=== PATIENT | female | born 1950 | race Caucasian/White ===

== ENCOUNTER 2017-03-10 12:17 | Emergency (ER) | payer MEDICARE ==
[2017-03-10] MEDS ORDERED: HYDROcodone/Acetaminophen 10/325 mg Tablet ONE (13:47)
== END 2017-03-10 13:54 | disposition home or self-care (01) ==
LOC: ERS 12:17
DX: K40.90 Unilateral inguinal hernia, without obstruction or gangrene, not specified as recurrent (principal); E78.5 Hyperlipidemia, unspecified; J44.9 Chronic obstructive pulmonary disease, unspecified; Z87.891 Personal history of nicotine dependence; Z79.82 Long term (current) use of aspirin; Z79.899 Other long term (current) drug therapy
CPT/HCPCS: 99284

== ENCOUNTER 2017-03-11 11:29 | Outpatient (CLI) | payer MEDICARE ==
--- NOTE | 2017-03-11 14:25 | EKG ---
Test Reason : Blood Pressure : / mmHG Vent. Rate : 060 BPM Atrial Rate : 060 BPM P-R Int : 164 ms QRS Dur : 078 ms QT Int : 406 ms P-R-T Axes : 083 078 081 degrees QTc Int : 406 ms Normal sinus rhythm Septal infarct , age undetermined Abnormal ECG No previous ECGs available Confirmed by DR. Maria E JACOBS ([id number]) on 03/11/2017 2:25:14 PM Referred By: MICKEY Confirmed By:DR. Maria E JACOBS
== END 2017-03-11 11:30 | disposition home or self-care (01) ==
LOC: LABBT 11:29
PROVIDERS: ATTEND Specialist
DX: Z01.818 Encounter for other preprocedural examination (principal); K40.90 Unilateral inguinal hernia, without obstruction or gangrene, not specified as recurrent
CPT/HCPCS: 93005; 93010

== ENCOUNTER 2017-03-19 06:00 | Day surgery (SDC) | payer MEDICARE ==
[2017-03-11 12:12] VITALS: BMI 17.4
--- NOTE | 2017-03-11 22:25 | HP ---
HISTORY OF PRESENT ILLNESS: Iqra West is a 67-year-old female with right inguinal hernia, she has COPD. She had colonoscopy on 06/01/2016 in [place], had problems, post-procedure requiring ER vi sit. Postoperatively, they presented to [facility] had laboratories. She had a CAT scan de monstrating right inguinal hernia, they were able to reduce the hernia. LABORATORY DATA: Laboratories on 03/10/2017, unremarkable. Plan is right inguinal hernia repair wit h as an outpatient. ALLERGIES: None. TOBACCO: None, since 2012 abuse prior to that. ALCOHOL: None. MEDICATIONS: Colace, Dawson 5/325, aspirin 81 mg a day, tramadol 50 mg a day, metoprolol 25 mg extend ed release every day, topiramate 50 mg every day, rizatriptan benzoate 10 mg a day, atorvastatin 10 m g a day, inhalers for COPD. PAST MEDICAL HISTORY: COPD. PAST SURGICAL HISTORY: In 2009 cervical spine surgery, 2 C-sections, subxiphoid surgery for hernia s he describes. REVIEW OF SYSTEMS: Ten point noncontributory. 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 She has severe arteriosclerosis ao rtic. PHYSICAL EXAMINATION: VITAL SIGNS: 92.8, 5'1", 17 BMI, 103/41, 66, 97.7 degrees. HEAD, EARS, EYES, NOSE AND THROAT: Unremarkable. LUNGS: Clear to auscultation. CARDIAC: Regular rate and rhythm without murmur or gallop. ABDOMEN: Soft, nontender. EXTREMITIES: Unremarkable. PULMONARY: No wheezing. The patient's left groin without hernia, on standing she has a right inguin al hernia that is reducible. ASSESSMENT AND PLAN: Right inguinal hernia. We will plan mesh repair. She understands the risks of infection, bleeding, reoperation, recurrence, and consents.
[2017-03-19] MEDS ORDERED: CEFAZOLIN/Water 2 GM/20 ML SYRINGE ONE (06:06)
[2017-03-19] MEDS ORDERED: Ketorolac Tromethamine 30 MG/ML VIAL ONE (06:07)
[2017-03-19] MEDS ORDERED: Lidocaine 2% PF 5 ML VIAL ONE (06:36)
[2017-03-19] MEDS ORDERED: Bupivacaine/Epinephrine 0.25% 30 ML VIAL ONE (06:36)
[2017-03-19] MEDS ORDERED: PROPOFOL 200 MG/20 ML VIAL ONE (06:55)
[2017-03-19] MEDS ORDERED: Ondansetron HCl/PF 4 MG/2 ML Vial ONE (06:55)
[2017-03-19] MEDS ORDERED: Dexamethasone 20 MG/5 ML VIAL ONE (06:55)
[2017-03-19] MEDS ORDERED: diphenhydrAMINE 50 MG/ML VIAL ONE (06:55)
[2017-03-19] MEDS ORDERED: Lidocaine 1% PF 5 ML VIAL ONE (06:55)
[2017-03-19] MEDS ORDERED: Fentanyl 100 MCG/2 ML VIAL ONE ×2 (06:59→09:31)
--- NOTE | 2017-03-19 09:36 | OP ---
PREOPERATIVE DIAGNOSIS: Right inguinal hernia. POSTOPERATIVE DIAGNOSIS: Right inguinal hernia. PROCEDURE: PHS mesh repair, right inguinal hernia. SURGEON: Dr. Edwin Perez. ANESTHESIA: General. Local 0.25% Marcaine with epinephrine, 30 mL, mixed with 2% Xylocaine, 10 mL t otal volume used. PROCEDURE IN DETAIL: The patient taken to the operating room where under general anesthesia, right g roin, abdomen, upper thigh prepared with ChloraPrep, draped in routine fashion. Ioban was used. Loc al anesthetic infiltrated into skin and subcutaneous tissue about the operative site. Transverse ski n incision was made in the right groin and carried down through the skin and subcutaneous tissue and the hernia mass dissected free, it was appreciated to be an indirect hernia protruding through the ex ternal ring. The external oblique, incising it in the direction of its fibers, opening the inguinal canal and the hernia sac dissected free from surrounding tissues. Hemostasis gained with cautery. H ernia sac opened under direct visualization, high ligation of hernia sac performed with a pursestring suture of 0 Nurolon to end of stump of the hernia sac, underlay portion of the PHS mesh secured with 0 Nurolon suture and mesh trimmed to a smaller size due to the patient's small stature both underlay and overlay portion. The underlay portion placed in the preperitoneal space, onlay portion placed s uperiorly in the inguinal canal and mesh secured with Mariano's ligament with 2 interrupted sutures of 0 Nurolon and Poupart's ligament with 2 sutures of 0 Nurolon. External oblique closed with continuo us suture of 3-0 Monocryl, Camper's fascia with continuous suture of 3-0 Monocryl, skin with continuo us subcuticular suture of 4-0 Monocryl and local anesthetic infiltrated in the space of the inguinal canal and space above and below Camper's fascia infiltrated in skin and subcutaneous tissue and [place] roth applied. Patient tolerated the procedure well.
== END 2017-03-19 11:07 | disposition home or self-care (01) ==
LOC: SDC 06:00
PROVIDERS: ATTEND Specialist
PROC: 0YU50JZ Supplement Right Inguinal Region with Synthetic Substitute, Open Approach (ICD-10-PCS; principal; 2017-03-19)
DX: K40.90 Unilateral inguinal hernia, without obstruction or gangrene, not specified as recurrent (principal); J44.9 Chronic obstructive pulmonary disease, unspecified; Z79.899 Other long term (current) drug therapy; Z98.890 Other specified postprocedural states; Z98.1 Arthrodesis status
CPT/HCPCS: 49505; C1781; J0131; J1100; J1200; J1885; J2001; J2405; J2704; J3010

== ENCOUNTER 2018-01-10 07:29 | Outpatient (CLI) | payer MEDICARE ==
--- NOTE | 2018-01-10 10:32 | MRI ---
RIGHT SHOULDER MRI WITHOUT IV CONTRAST: Date: 01/10/18 HISTORY: 67-year-old female with history of right rotator cuff strain. Patient was medicated, but still demonstrated severe motion artifact. FINDINGS: Severe motion artifact markedly reduces the sensitivity of this study. There are some AC joint arthro sis changes with minimal T2 hyperintensity in the adjacent clavicle and acromion. There does appear t o be some minimal fluid and reaction within the subacromial/subdeltoid bursa. I cannot demonstrate a complete retracted rotator cuff tear, although certain partial thickness tears could very well be pre sent and just obscured by the extensive motion artifact. Subscapularis tendon and biceps tendon are v lis poorly identified, but there does not appear to be a complete full thickness retracted tear. Labr um is inadequately evaluated. No acute osteochondral defect or significant abnormal marrow signal of the glenoid or humerus. Rotator cuff muscles appear to be within normal limits of signal and volume. IMPRESSION: Very severe motion artifact results in a very suboptimal examination. No overt complete retracted rot ator cuff tear. AC joint arthrosis. POS: LINDSEY
== END 2018-01-10 07:30 | disposition home or self-care (01) ==
LOC: BICMRI 07:29
PROVIDERS: ATTEND Anesthesiology Pain Medicine
DX: S43.429A Sprain of unspecified rotator cuff capsule, initial encounter (principal); M19.011 Primary osteoarthritis, right shoulder

== ENCOUNTER 2018-02-17 09:33 | Outpatient (CLI) | payer MEDICARE ==
--- NOTE | 2018-02-17 11:37 | RAD ---
RIGHT SHOULDER THREE VIEW: Indication: Chronic pain. FINDINGS: There is moderate osteoarthritis of the right AC joint. There is no fracture or dislocation. Partiall y imaged hardware is seen at the cervical spine. IMPRESSION: Osteoarthritis of the right shoulder. There is no acute fracture. POS: C
--- NOTE | 2018-02-17 14:15 | CT ---
CT ARTHROGRAM RIGHT SHOULDER: DATE: 02/17/2018. PROVIDED CLINICAL HISTORY: Right shoulder pain. FINDINGS: Comparison is made with the MRI examination performed 01/10/2018. There is no evidence for contrast containing fluid beyond the confines of the glenohumeral joint to s uggest a full-thickness rotator cuff tear. There is no evidence for undersurface irregularity of the visualized components of the rotator cuff to suggest partial-thickness undersurface tear. Rotator c uff muscular volume appears preserved. There is acromioclavicular joint osteoarthrosis which produce s mass effect upon the subjacent supraspinatus. The glenoid labrum and glenohumeral articular cartil age appear normal by CT. No fracture or other acute osseous abnormality is evident. The glenohumera l relationship appears normal. The long head biceps tendon appears intact and is normally located. There are emphysematous changes seen involving the partially visualized right lung. No evidence for axillary adenopathy. Vascular calcifications are seen. Partially visualized cervical spinal hardwar e. IMPRESSION: No evidence for rotator cuff tear. POS: OFF
== END 2018-02-17 09:34 | disposition home or self-care (01) ==
LOC: RAD 09:33
PROVIDERS: ATTEND Orthopaedic Surgery
DX: M25.511 Pain in right shoulder (principal); G89.29 Other chronic pain; M19.011 Primary osteoarthritis, right shoulder
CPT/HCPCS: 23350

== ENCOUNTER 2020-03-18 08:44 | Outpatient (CLI) | payer MEDICARE ==
--- NOTE | 2020-03-18 11:51 | RAD ---
TWO VIEW CHEST: INDICATION: Dyspnea. COMPARISON: 01/11/2020 and 08/09/2019. FINDINGS: No evidence of infiltrate or vascular congestion. Stranding and chronic parenchymal changes appear s table. Nodular density in the left upper lung is stable. Heart and mediastinum unremarkable. IMPRESSION: No acute process. POS: AGW
== END 2020-03-18 08:45 | disposition home or self-care (01) ==
LOC: BICRAD 08:44
PROVIDERS: ATTEND Internal Medicine Critical Care Medicine
DX: R06.00 Dyspnea, unspecified (principal)
CPT/HCPCS: 71046

== ENCOUNTER 2020-03-25 00:10 | Inpatient (IN) | payer MEDICARE, SELFPAY ==
[2020-03-25] MEDS ORDERED: Acetaminophen 325 MG TAB PO PRN (00:45)
[2020-03-25 00:58] VITALS: BMI 18.8
[2020-03-25] MEDS ORDERED: Albuterol 200 PUFF (6.7GM INHALER) INH PRN (01:09)
[2020-03-25] MEDS ORDERED: Guaifenesin DM 100-10/5 ML UDCUP PO PRN (02:03)
[2020-03-25] MEDS ORDERED: Non-Formulary Item 1 EACH (Albuterol Sulfate [Proair Hfa] 8.5 GM Hfa.Aer.Ad) INH PRN (02:09)
--- NOTE | 2020-03-25 02:12 | PDOC.HHP ---
Hospitalist HPI - History of Present Illness Shortness of breath and fever History of Present Illness: 70-year-old woman with a history of COPD, chronic respiratory failure on 2 L of oxygen by nasal cannula was transferred from [facility] to be directly admitted because patient tested positive for Covid 19 and she is considered a high risk patient. She presented to the [place] ER due to increased shortness of breath and fever. She reports intermittent nonproductive cough, no chest pain. Chest x-ray done in the ER shows no acute infiltrate. No leukocytosis. UA is negative. Patient was saturating well on her baseline 2 L of oxygen by nasal cannula with good oxygen saturation. She was sleeping comfortably when I saw her on the medical floor. Hospitalist ROS - Review of Systems Other: Except as documented, all other systems reviewed and negative. Hospitalist History - Past Medical History Pulmonary: reports: COPD - Past Surgical History Other Surgical History: Cervical spine surgery section - Family History Family History: reports: cardiac disorder (Father) - Social History Smoking Status: Former smoker Alcohol: reports: None Drugs: reports: none - Exam General Appearance: NAD, awake alert Eye: PERRL, anicteric sclera ENT: normocephalic atraumatic, moist mucosa Neck: supple, no JVD Heart: RRR, normal peripheral pulses Respiratory: CTAB, no wheezes, no rales Gastrointestinal: soft, non-tender, non-distended Extremities: no cyanosis, no edema Skin: normal turgor, no rashes Neurological: cranial nerve grossly intact, no focal deficits Musculoskeletal: normal tone, normal strength Psychiatric: normal affect, normal behavior, A&O x 3 Hospitalist Results - Labs Lab results: Labs done at [facility] reviewed. UA is negative for UTI. WBC:10 HB 12.5 Cr:0.85 - Radiology Interpretation Chest x-ray Status: report reviewed by me (No acute intrathoracic disease.) Hospitalist H&P A/P - Problem (1) COPD (chronic obstructive pulmonary disease) Status: Acute (2) COVID-19 virus infection Code(s): U07.1 - COVID-19 Status: Acute (3) Chronic respiratory failure with hypoxia Code(s): J96.11 - CHRONIC RESPIRATORY FAILURE WITH HYPOXIA Status: Acute - Plan Plan: Place under observation. Start oral prednisone Continue home inhalers. Titrate oxygen No indication for antibiotics at this time. Vitamins and zinc supplementation
[2020-03-25 06:51] LABS: #Lymphocytes 1.4 thou/uL (1.20-3.40); #Monocytes 0.9 thou/uL (0.11-0.59); #Neutrophils 4.3 thou/uL (1.40-6.50); %Basophils 0.4 % (0.0-1.0); %Eosinophils 0.5 % (0.0-10.0); %Lymphocytes 20.8 % (21.0-51.0); %Monocytes 13.1 % (0.0-10.0); %Neutrophils 65.1 % (42.0-75.0); Hemoglobin 11.2 g/dL (12.0-16.0); Mean Corpuscular HGB CONC 31.4 g/dL (32.0-36.0); Mean Corpuscular Hemoglobin 30.9 pg (27.0-31.0); Mean Corpuscular Volume 98.2 fL (78.0-98.0); Platelet Count 187 thou/uL (130-400); RBC Distribution Width 12.4 % (11.5-14.5); Red Blood Cell (RBC) Count 3.62 mill/uL (4.20-5.40); White Blood Cell (WBC) Count 6.6 thou/uL (4.8-10.8)
[2020-03-25 07:11] LABS: Anion Gap 14 mmol/L (10-20); BUN (Urea Nitrogen) 14 mg/dL (9.8-20.1); Calc. Creatinine Clearance 55 mL/min (70-130); Calcium 8.1 mg/dL (7.8-10.44); Carbon Dioxide 26 mmol/L (23-31); Chloride 103 mmol/L (98-107); Glucose 74 mg/dL (80-115); Potassium 3.4 mmol/L (3.5-5.1); Sodium 140 mmol/L (136-145)
[2020-03-25] MEDS ORDERED: predniSONE 20 MG TAB PO SCH (08:00)
[2020-03-25] MEDS: Ascorbic Acid 500 mg Chewable Tablet PO SCH ×2 (08:02→20:25)
[2020-03-25] MEDS: Cholecalciferol 1,000 UNITS (25 MCG) TAB PO SCH (08:02)
[2020-03-25] MEDS: Zinc Sulfate 220 MG CAP PO SCH (08:03)
[2020-03-25] MEDS: Albuterol 200 PUFF (6.7GM INHALER) INH SCH ×3 (08:04→20:27)
[2020-03-25] MEDS ORDERED: Enoxaparin Sodium 40 MG/0.4 ML SYRINGE SC SCH (09:00)
[2020-03-25] MEDS ORDERED: Non-Formulary Item 1 EACH (Umeclidinium Brm/Vilanterol Tr [Anoro Ellipta] 62.5 MCG/25 MCG INH SCH (09:00)
[2020-03-25] MEDS: HYDROcodone/Acetaminophen 5/325 mg Tablet PO PRN ×2 (12:23→20:26)
[2020-03-25] MEDS ORDERED: Potassium Chloride 20 MEQ TAB PO SCH (13:15)
--- NOTE | 2020-03-25 15:35 | CON ---
DATE OF CONSULTATION: 03/25/2020 TIME SPENT: 45 minutes of time; of that time, greater than 50% spent with the patient and/or the patient's unit in the hospital. REASON FOR CONSULTATION: COVID-19 pneumonia and COPD exacerbation. HISTORY OF PRESENT ILLNESS: Ms. West is a 70-year-old female who was followed in the office by Dr. Herrera for her COPD. She was last seen about 1 week ago. She presents with a 1-day history of fever, shortness of breath, and a cough. She was diagnosed with COVID and was sent over here because of medical comorbidities. She has developed elevation of her baseline atrial fibrillation heart rate today and is about to be transferred over to the telemetry unit. PAST MEDICAL HISTORY: COPD. PAST SURGICAL HISTORY: 1. C-spine surgery. 2. . FAMILY MEDICAL HISTORY: Remarkable for heart disease. SOCIAL HISTORY: Quit smoking 10 years ago. Does not consume alcohol. Does not use illicit drugs. ALLERGIES: NONE. MEDICATIONS: Prior to admission: 1. Tramadol. 2. Anoro Ellipta. 3. Topiramate. 4. Albuterol. 5. Maxalt. 6. Metoprolol. 7. [place]. 8. Docusate. 9. Atorvastatin. 10. Aspirin. 11. Albuterol. Current inpatient medications: Reviewed. See chart. Of note, she has been put on prednisone. REVIEW OF SYSTEMS: Twelve-point review of systems is otherwise negative. PHYSICAL EXAMINATION: VITAL SIGNS: Temperature 98.3 and this was 99.1, pulse 130, respirations 26, O2 saturation 100%, and blood pressure 109/65. GENERAL: She is a thin, white female who is awake and alert, in no apparent distress. HEENT: Unremarkable. NECK: No adenopathy or JVD. LUNGS: Few inspiratory crackles bilaterally. CARDIAC: S1 and S2. Tachycardic. Irregularly irregular. ABDOMEN: Soft and nontender. EXTREMITIES: No clubbing, cyanosis, or edema. NEUROLOGIC: Grossly intact. LABORATORY DATA: White blood cell count 6.6, hematocrit 35.6, and platelet count 187. Sodium 140, potassium 3.4, chloride 103, CO2 of 26, BUN 14, creatinine 0.6, and glucose 74. COVID test from 03/24/2020 was positive. Chest x-ray shows hyperinflation without evidence of mass, effusion, or infiltrate. ASSESSMENT: COVID-19 infection and the patient is high risk for decompensation from underlying chronic obstructive pulmonary disease. PLAN: Would change to dexamethasone. We will go ahead and give her remdesivir and convalescent plasma since she is very early on. Agree with move to telemetry since her AFib seems to be uncontrolled. Job ID: [id number]
--- NOTE | 2020-03-25 16:12 | PDOC.EVN ---
Event Note - Event Note Event Note: Patient noted to have heart rate into the 110s-150s. Symptoms otherwise unchanged from admit and sating well on her home 2L NC. EKG down showing afib with RVR. Giving diltiazem and increase Lovenox to BID at full dose (only 40 for her given weight). I spoke with Dr. Escudero and she will consult. Will also consult Dr. 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
[2020-03-25] MEDS ORDERED: Diltiazem 125 MG in Sodium Chloride 0.9% 100 ML IVPB SCH (16:15)
[2020-03-25 17:33] LABS: ALT (SGPT) 31 U/L (8-55); AST (SGOT) 42 U/L (5-34); Albumin 3.5 g/dL (3.4-4.8); Alkaline Phosphatase 44 U/L (40-110); Bilirubin, Direct 0.1 mg/dL (0.1-0.3); Bilirubin, Total 0.2 mg/dL (0.2-1.2); Protein, Total 6.2 g/dL (6.0-8.3)
[2020-03-25] MEDS ORDERED: Digoxin 0.5 MG/2 ML AMP SLOW IVP SCH (19:15)
--- NOTE | 2020-03-25 19:38 | CON ---
DATE OF CONSULTATION: 03/25/2020 INDICATION FOR CONSULTATION: A 70-year-old female with a history of COPD, chronic respiratory failure, and COVID who has episodes of intermittent atrial fibrillation, who was converted to atrial fibrillation with rapid ventricular response. We were asked to see her due to the atrial fibrillation. HISTORY OF PRESENT ILLNESS: This is a very unfortunate 70-year-old female who smoked heavily in the past, has a history of COPD and chronic respiratory failure. She is on oxygen, I believe, 05/10. She presented to the [facility] room after increasing shortness of breath and fevers. She was found to have COVID and was transferred here for further evaluation and treatment due to her high risk of decompensating. She normally is seen, I believe, by Dr. Herrera for her pulmonary problems. 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 She did tell me that when she was admitted to the hospital, this is the 3rd or 4th episode where she is admitted to the hospital with increasing shortness of breath or dyspnea and has developed atrial fibrillation. At this time, she was started on IV diltiazem and at times has converted back to sinus rhythm, but then again back to atrial fibrillation. PAST MEDICAL HISTORY: Significant mainly for her COPD, a , and some back surgery, I believe, she has had some C-spine surgery. She has also had hernia repairs. FAMILY HISTORY: Positive for some cardiac problems with her father. SOCIAL HISTORY: No history of alcohol or illicit drug use. She smoked in the past and have not smoked for several years now. REVIEW OF SYSTEMS: A 12-point review of systems was unremarkable except as noted in the history of present illness with increasing shortness of breath and dyspnea. ALLERGIES: NONE. MEDICATIONS: Home medicines included 1. Aspirin. 2. Tramadol. 3. Metoprolol/HCTZ 25/12.5 once a day. 4. Topiramate 100 mg q.p.m. 5. Maxalt 10 mg a day. 6. Lipitor 10 mg a day. 7. She is on inhalers for her COPD. PHYSICAL EXAMINATION: GENERAL: Reveals a thin female who is in no acute distress. She did have some coughing to the examination. VITAL SIGNS: Blood pressure is 116/63, heart rate is anywhere between 90s to 130s. Temperature is 98.3, earlier was 99.1, respiratory rate was 22. HEENT: Shows the head to be normocephalic and atraumatic. NECK: Carotid pulses are present. I did not hear any significant bruits. CHEST: Has decreased breath sounds throughout but no significant rales or rhonchi. CARDIOVASCULAR: Reveals a tachycardia with an irregularly irregular rhythm. I do not hear any gross murmurs, heaves, thrills or bruits. ABDOMEN: Soft and nontender. Positive bowel sounds are present. EXTREMITIES: Show no clubbing, cyanosis, or edema. Pedal pulses are present, somewhat decreased on the right, but certainly normal on the left. SKIN: Warm and dry. NEUROLOGIC: There were no gross focal motor deficits. PSYCHOSOCIAL: She appears to be within normal limits. No significant acute findings were noted. LABORATORY DATA: WBC of 6.6, hemoglobin 11.2, platelet count 187,000. Sodium was 140 with a potassium of 3.4, BUN was 14 with a creatinine of 0.06, a bicarb of 26. Blood sugar was 74. Her AST was 42. She is COVID positive. Chest x-ray showed no acute problems. EKG shows atrial fibrillation with rapid ventricular response and at other time shows a sinus tachycardia. At the time, she is in sinus tachycardia. This was approximately 1634 hours in the afternoon and there were no significant ST-segment changes during that time when she was in sinus rhythm. She then converted back to atrial fibrillation at 1741 hours. She has been placed on IV diltiazem. IMPRESSION: 1. Atrial fibrillation with rapid ventricular response. She has been placed on IV diltiazem. I would continue this medication. Can also add digoxin for rate control. This appears to be provoked by her COPD and probably even with the COVID. I would continue to follow her. If we can maintain her with IV diltiazem, this may be the best way to go. She is not a very good candidate to increase the beta-blockers with her COPD. We could certainly try Multaq if necessary to control her atrial fibrillation. She did tell me also that she has undergone a cardiac catheterization in the past and did not have any evidence of coronary artery disease, but does have some problems with some type of narrowing in the aorta, uncertain as to what that is. She could have some aortic stenosis, but now she has normal pulses in the lower extremities. I would not think this is a very significant. 2. Chronic obstructive pulmonary disease. She has been followed by Dr. Herrera in the past and most likely he will continue her care. 3. COVID. I believe she has already been seen by Dr. Jordan who has ordered some treatment for her at this time. At this time, I will continue to follow her. We agree with the present medication, but will order digoxin in order to maintain the heart rate under better control. 4. Some history of dyslipidemia. We will continue her atorvastatin. I believe this is one of her medicines prior to being admitted. Job ID: [id number]
[2020-03-25] MEDS: Atorvastatin Calcium 10 MG TAB PO SCH (20:26)
[2020-03-25] MEDS: Enoxaparin Sodium 40 MG/0.4 ML SYRINGE SC SCH (20:26)
[2020-03-25] MEDS ORDERED: TOPIRAMATE 50 MG PO SCH (21:00)
[2020-03-25] MEDS ORDERED: Nitroglycerin 0.4 MG TAB (25 Tab Bottle) ONE (21:04)
[2020-03-25] MEDS: Ibuprofen 200 MG TAB PO PRN (21:20)
[2020-03-25] MEDS: Nitroglycerin 0.4 MG TAB (25 Tab Bottle) SL PRN ×2 (21:20→21:30)
[2020-03-25 22:04] LABS: CKMB 2.3 ng/mL (0-6.6)
[2020-03-26] MEDS: Digoxin 0.5 MG/2 ML AMP SLOW IVP SCH ×2 (01:45→07:32)
[2020-03-26 01:51] LABS: CKMB 1.9 ng/mL (0-6.6)
[2020-03-26] MEDS: Albuterol 200 PUFF (6.7GM INHALER) INH SCH ×4 (02:15→20:48)
[2020-03-26 05:11] LABS: Troponin I 0.159 ng/mL (< 0.028)
--- NOTE | 2020-03-26 07:12 | PDOC.HOSPP ---
- Subjective Encounter Date: 03/26/20 Encounter Time: 10:00 Subjective: Patient reports mild improvement in SOB, but started wheezing when ambulated to the bathroom just now. Waiting for inhaler to be sent up from the pharmacy. - Objective Vital Signs & Weight: Vital Signs (12 hours) Temp Pulse Pulse Resp BP BP Pulse Ox 03/26/20 04:00 98.5 F 92 16 104/51 L 96 03/26/20 01:45 111 H 03/26/20 01:15 98.3 F 82 18 101/57 L 03/25/20 23:38 98.1 F 86 18 99/53 L 03/25/20 23:23 98.1 F 94 18 99/54 L 03/25/20 21:20 100.5 F H 03/25/20 20:25 111 H 03/25/20 20:00 100 03/25/20 19:20 100.5 F H 111 H 16 119/58 L 90 L Weight Admit Weight 96 lb 9.6 oz Weight 96 lb 9.6 oz I&O: 03/25/20 03/26/20 03/27/20 06:59 06:59 06:59 Intake Total 750 Output Total 300 Balance 450 Result Diagrams: 03/25/20 06:21 03/25/20 06:21 Additional Labs: Accuchecks 03/26/20 05:11 POC Glucose 60 L Hospitalist ROS - Review of Systems Constitutional: denies: fever, chills Respiratory: reports: cough, shortness of breath, SOB with excertion, wheezing Cardiovascular: denies: chest pain, palpitations Gastrointestinal: denies: nausea, vomiting, abdominal pain - Medication Medications: Active Medications Generic Name Dose Route Start Last Admin Trade Name Freq PRN Reason Stop Dose Admin Albuterol Sulfate 2 puff 03/25/20 07:00 03/26/20 02:15 Albuterol 200 Puff (6.7gm Inhaler) INH Not Given V4PT-WH KHANH Ascorbic Acid 500 mg 03/25/20 09:00 03/25/20 20:25 Ascorbic Acid 500 Mg Chewable Tablet PO 500 mg BID KHANH Administration Atorvastatin Calcium 10 mg 03/25/20 21:00 03/25/20 20:26 Atorvastatin Calcium 10 Mg Tab PO 10 mg HS KHANH Administration Cholecalciferol 2,000 units 03/25/20 09:00 03/25/20 08:02 Cholecalciferol 1,000 Units (25 Mcg) Tab PO 2,000 units DAILY KHANH Administration Digoxin 0.25 mg 03/26/20 01:30 03/26/20 01:45 Digoxin 0.5 Mg/2 Ml Amp SLOW IVP 03/26/20 09:30 0.25 mg 0130,0730 KHANH Administration Enoxaparin Sodium 40 mg 03/25/20 21:00 03/25/20 20:26 Enoxaparin Sodium 40 Mg/0.4 Ml Syringe SC 40 mg 0900,2100 KHANH Administration Diltiazem HCl 125 mg/ Sodium 125 mls @ 5 mls/hr 03/25/20 16:15 03/25/20 17:33 Chloride IVPB 125 mls INF KHANH Administration Protocol 5 MG/HR Ibuprofen 400 mg 03/25/20 21:18 03/25/20 21:20 Ibuprofen 200 Mg Tab PO 400 mg Q6H PRN Administration Fever/Mild Pain Nitroglycerin 0.4 mg 03/25/20 20:53 03/25/20 21:30 Nitroglycerin 0.4 Mg Tab (25 Tab Bottle) SL 1 tab Q5MIN PRN Administration Chest Pain Sodium Chloride 10 ml 03/25/20 00:45 03/25/20 20:26 Flush - Normal Saline 10 Ml Syringe IVF 10 ml PRN PRN Administration Saline Flush Zinc Sulfate 220 mg 03/25/20 09:00 03/25/20 08:03 Zinc Sulfate 220 Mg Cap PO 220 mg DAILY KHANH Administration - Exam General Appearance: NAD, awake alert ENT: moist mucosa Heart: RRR, no murmur, no gallops, no rubs Respiratory: no rales, no ronchi, no tachypnea, wheezes Gastrointestinal: soft, non-tender, non-distended, normal bowel sounds Extremities: no edema Psychiatric: normal affect, normal behavior, A&O x 3 Hosp A/P (1) COVID-19 virus infection Code(s): U07.1 - COVID-19 Status: Acute (2) COPD with exacerbation Code(s): J44.1 - CHRONIC OBSTRUCTIVE PULMONARY DISEASE W (ACUTE) EXACERBATION Status: Acute (3) Chronic respiratory failure with hypoxia Code(s): J96.11 - CHRONIC RESPIRATORY FAILURE WITH HYPOXIA Status: Chronic (4) Atrial fibrillation with RVR Code(s): I48.91 - UNSPECIFIED ATRIAL FIBRILLATION Status: Acute - Plan 70 year old white female with a history of COPD on chronic O2 2L NC who came in with 2 week worsening symptoms. Diagnosed with Covid-19 without significant pneumonia and COPD exacerbation. She converted to atrial fibrillation with RVR after hospitalization which patient reports she has had with COPD exacerbations in the past. Covid-19 infection - Dr. Jordan consulted - Dexamethasone, Remdesivir, Convalescent plasma - Monitor for worsening symptoms or increased oxygen requirement - Full dose Lovenox BID COPD exacerbation - Inhalers, steroids, home oxygen Atrial fibrillation with RVR - Diltiazem drip and digoxin, transitioning to oral diltiazem today - Dr. Escudero consulted - Patient with history of paroxysmal afib from previous COPD exacerbations DVT Proph: Lovenox 40mg BID GI Proph: Pepcid BID
[2020-03-26] MEDS: Enoxaparin Sodium 40 MG/0.4 ML SYRINGE SC SCH ×2 (09:17→20:48)
[2020-03-26] MEDS: Hydrochlorothiazide 25 MG TAB PO SCH (09:18)
[2020-03-26] MEDS: Cholecalciferol 1,000 UNITS (25 MCG) TAB PO SCH (09:18)
[2020-03-26] MEDS: Aspirin Chewable 81 MG TAB PO SCH (09:18)
[2020-03-26] MEDS: Zinc Sulfate 220 MG CAP PO SCH (09:19)
[2020-03-26] MEDS: Digoxin 0.125 MG TAB PO SCH (09:19)
[2020-03-26] MEDS: Ascorbic Acid 500 mg Chewable Tablet PO SCH ×2 (09:19→20:47)
[2020-03-26] MEDS: Dexamethasone 4 mg/ml Vial SLOW IVP SCH (09:19)
[2020-03-26] MEDS: Docusate 100 MG CAP PO SCH (09:20)
--- NOTE | 2020-03-26 11:06 | PDOC.CPN ---
- Subjective Date: 03/26/20 Time: 09:15 Interval history: No overnight events, she c/o shortness of breath that has remained the same throughout the night. - Review of Systems General: denies: fever/chills, weight/appetite/sleep changes, night sweats, fati gaston Respiratory: reports: shortness of breath Cardiovascular: denies: chest pain, palpitation, edema, paroxysmal nocturnal dyspnea, orthopnea Gastrointestinal: denies: nausea, vomiting, diarrhea, constipation, abd pain, GI bleeding Musculoskeletal: denies: pain, tenderness, stiffness, swelling, arth ritis/arthralgias Neurological: denies: numbness, syncope, seizure, weakness - Objective Allergies/Adverse Reactions: Allergies Allergy/AdvReac Type Severity Reaction Status Date / Time acetaminophen Allergy Verified 03/25/20 21:57 nalbuphine [From Nubain] Allergy Verified 03/25/20 21:57 Visit Medications: Current Medications Albuterol Sulfate (Albuterol 200 Puff (6.7gm Inhaler)) 2 puff INH Q4H PRN PRN Reason: Wheezing Albuterol Sulfate (Albuterol 200 Puff (6.7gm Inhaler)) 2 puff INH [id number] [facility] Last Admin: 03/26/20 02:15 Dose: Not Given Documented by: Ascorbic Acid (Ascorbic Acid 500 Mg Chewable Tablet) 500 mg PO BID [facility] Last Admin: 03/26/20 09:19 Dose: 500 mg Documented by: Aspirin (Aspirin Chewable 81 Mg Tab) 81 mg PO DAILY [facility] Last Admin: 03/26/20 09:18 Dose: 81 mg Documented by: Atorvastatin Calcium (Atorvastatin Calcium 10 Mg Tab) 10 mg PO HS [facility] Last Admin: 03/25/20 20:26 Dose: 10 mg Documented by: Cholecalciferol (Cholecalciferol 1,000 Units (25 Mcg) Tab) 2,000 units PO DAILY [facility] Last Admin: 03/26/20 09:18 Dose: 2,000 units Documented by: Dexamethasone (Dexamethasone 4 Mg/Ml Vial) 6 mg SLOW IVP DAILY [facility] Last Admin: 03/26/20 09:19 Dose: 6 mg Documented by: Digoxin (Digoxin 0.125 Mg Tab) 0.125 mg PO QAM [facility] Last Admin: 03/26/20 09:19 Dose: 0.125 mg Documented by: Diltiazem HCl (Diltiazem Hcl Cd 180 Mg Capsule) 180 mg PO DAILY [facility] Docusate Sodium (Docusate 100 Mg Cap) 100 mg PO DAILY [facility] Last Admin: 03/26/20 09:20 Dose: 100 mg Documented by: Enoxaparin Sodium (Enoxaparin Sodium 40 Mg/0.4 Ml Syringe) 40 mg SC 0900,2100 [facility] Last Admin: 03/26/20 09:17 Dose: 40 mg Documented by: Guaifenesin/Dextromethorphan (Guaifenesin Dm 100-10/5 Ml Udcup) 15 ml PO Q4H PRN PRN Reason: Cough Hydrochlorothiazide (Hydrochlorothiazide 25 Mg Tab) 12.5 mg PO DAILY [facility] Last Admin: 03/26/20 09:18 Dose: 12.5 mg Documented by: Diltiazem HCl 125 mg/ Sodium (Chloride) 125 mls @ 5 mls/hr IVPB INF [facility]; Protocol Stop: 03/26/20 12:00 Last Admin: 03/25/20 17:33 Dose: 125 mls Documented by: Ibuprofen (Ibuprofen 200 Mg Tab) 400 mg PO Q6H PRN PRN Reason: Fever/Mild Pain Last Admin: 03/25/20 21:20 Dose: 400 mg Documented by: Metoprolol Succinate (Metoprolol Succinate Xl 25 Mg Tab) 25 mg PO DAILY [facility] Last Admin: 03/26/20 09:19 Dose: 25 mg Documented by: Miscellaneous Medication (Pharmacy To Dose 1 Each) 1 each IVPB PRN PRN PRN Reason: Pharmacy to dose Nitroglycerin (Nitroglycerin 0.4 Mg Tab (25 Tab Bottle)) 0.4 mg SL Q5MIN PRN PRN Reason: Chest Pain Last Admin: 03/25/20 21:30 Dose: 1 tab Documented by: Non-Formulary Medication (Topiramate [Trokendi Xr]) 2 tab PO HS [facility] Sodium Chloride (Flush - Normal Saline 10 Ml Syringe) 10 ml IVF PRN PRN PRN Reason: Saline Flush Last Admin: 03/25/20 20:26 Dose: 10 ml Documented by: Zinc Sulfate (Zinc Sulfate 220 Mg Cap) 220 mg PO DAILY [facility] Last Admin: 03/26/20 09:19 Dose: 220 mg Documented by: Vital Signs & Weight: Vital Signs Temp Pulse Pulse Resp BP BP Pulse Ox 03/26/20 09:19 103 H 03/26/20 07:46 98.2 F 95 16 121/57 L 98 03/26/20 07:32 95 03/26/20 04:00 98.5 F 92 16 104/51 L 96 03/26/20 01:45 111 H 03/26/20 01:15 98.3 F 82 18 101/57 L 03/25/20 23:38 98.1 F 86 18 99/53 L 03/25/20 23:23 98.1 F 94 18 99/54 L Admit Weight 96 lb 9.6 oz Weight 96 lb 9.6 oz - Physical Exam General: alert & oriented x3, other HEENT: mucus membranes moist Neck: no JVD/HJR, no bruit Cardiac: regular rate and rhythm Lungs: wheezes, oxygen Neuro: grossly intact Abdomen: soft, non-tender Extremities: no cyanosis, no clubbing, 2+ Posterior Tibial, 2+ Dorsalis Pedus Skin: clear Musculoskeletal: normal range of motion - Labs Result Diagrams: 03/25/20 06:21 03/25/20 06:21 Troponin/CKMB CK-MB (CK-2) 1.9 ng/mL (0-6.6) 03/26/20 00:59 Troponin I 0.159 ng/mL (< 0.028) H 03/26/20 04:27 - EKG Interpretation EKG Method: Telemetry EKG: sinus rhythm - Assessment/Plan Assessment/Plan: 1. Atrial fibrillation with RVR: she remains in SR with her HR 70-90's. We will stop the Cardizem drip and transition to PO Cardizem. She remains on PO Digoxin. Will continue to monitor. 2. COVID: treated by primary care sevices, she remains on oxygen 2 L/min via nasal cannula. 3. COPD: she remains short of breath, she states that this has remained the same. Treated by pulmonolgy and primary care services. 4. Dyslipiddemia: will continue Atorvastatin.
[2020-03-26] MEDS ORDERED: REMDESIVIR (EUA) 200 MG in Sodium Chloride 0.9% 250 ML 210 ML IV SCH (13:15)
--- NOTE | 2020-03-26 16:54 | PQF ---
CLINICAL DOCUMENTATION CLARIFICATION FORM: Dear Dr. Hall Date: 03/26/2020 Please exercise your independent, professional judgment in responding to the clarification form. Clinical indicators are provided on the bottom of this form for your review. Please check appropriate box(es): [ X ] Protein Calorie Malnutrition: [ ] Mild [ X ] Moderate [ ] Other Malnutrition (please specify) [ ] Other diagnosis [ ] Unable to determine In addition, please specify: Present on Admission (POA): [ X ] Yes [ ] No [ ] Unable to determine For continuity of documentation, please document condition throughout progress notes and discharge summary. Thank You. To be completed by CDI/Coding staff for physician review: CLINICAL INDICATORS - SIGNS / SYMPTOMS / LABS / RESULTS AND LOCATION IN [facility] Assessment 03/25: BMI 18.8 Nutrition dx: Malnutrition related to COVID pna As Evidenced By estimated intake <75% of needs x 2 weeks, 3.4% wt loss x2 wks suggestive of moderate malnutrition in context of acute illness TREATMENT / RESULTS AND LOCATION IN H&P 03/25 ([facility]) HPI: hx COPD, chronic respiratory failure claire 2L of O@ on nc. A/P: COVID-19 virus infection TREATMENT / RESULTS AND LOCATION IN 03/25 [facility] Assessment for BMI 18.8 Intervention: Recommend Ensure Enlive BID. Continue vitamin C and Zn supplementation Moderate Malnutrition (in acute illness) Energy Intake: <75% of estimated energy requirement for > 7 days Weight Loss: 1-2%/1 week; 5%/ 1 month; 7.5%/3 months Other: mild body fat loss; mild muscle mass loss; mild fluid accumulation; Severe Malnutrition (in acute illness) Energy Intake: = 50% of estimated energy requirement for = 5 days Weight Loss: >2%/1 week; >5%/1 month; >7.5%/3 months Other: moderate body fat loss; moderate muscle mass loss; moderate- severe fluid accumulation; measurably reduced advertising solicitor strength Moderate Malnutrition (in chronic illness) Energy Intake: <75% of estimated energy requirement for =1 month Weight Loss: 5%/1 month; 7.5%/3 months; 10%/6 months; 20%/1 year Other: mild body fat loss; mild muscle mass loss; mild fluid accumulation Severe Malnutrition (in chronic illness) Energy Intake: =75% of estimated energy requirement for =1 month Weight Loss: >5%/1 month; >7.5%/3 months; >10%/6 months; >20%/1 year Other: severe body fat loss; severe muscle mass loss; severe fluid accumulation; measurably reduced advertising solicitor strength Thank you, Cailin Vasquez RN, BSN [email or web address] This is a permanent part of the Medical Record [facility]
[2020-03-26] MEDS: Ibuprofen 200 MG TAB PO PRN (20:47)
[2020-03-26] MEDS: Atorvastatin Calcium 10 MG TAB PO SCH (20:47)
[2020-03-26 22:51] LABS: Anion Gap 14 mmol/L (10-20); Carbon Dioxide 32 mmol/L (23-31); Chloride 94 mmol/L (98-107); Magnesium 1.9 mg/dL (1.6-2.6); Potassium 3.3 mmol/L (3.5-5.1); Sodium 137 mmol/L (136-145)
[2020-03-26] MEDS ORDERED: Potassium Chloride 20 MEQ TAB PO SCH (23:00)
[2020-03-27] MEDS: Albuterol 200 PUFF (6.7GM INHALER) INH SCH ×4 (05:16→20:27)
[2020-03-27] MEDS: Cholecalciferol 1,000 UNITS (25 MCG) TAB PO SCH (07:57)
[2020-03-27] MEDS: Aspirin Chewable 81 MG TAB PO SCH (07:57)
[2020-03-27] MEDS: Digoxin 0.125 MG TAB PO SCH (07:57)
[2020-03-27] MEDS: Dexamethasone 4 mg/ml Vial SLOW IVP SCH (07:57)
[2020-03-27] MEDS: Ascorbic Acid 500 mg Chewable Tablet PO SCH ×2 (07:57→20:26)
[2020-03-27] MEDS: Enoxaparin Sodium 40 MG/0.4 ML SYRINGE SC SCH ×2 (07:58→20:26)
[2020-03-27] MEDS: Docusate 100 MG CAP PO SCH (07:58)
[2020-03-27] MEDS: Hydrochlorothiazide 25 MG TAB PO SCH (07:58)
[2020-03-27] MEDS: Zinc Sulfate 220 MG CAP PO SCH (07:59)
--- NOTE | 2020-03-27 11:16 | PRG ---
DATE OF SERVICE: 03/26/2020 SUBJECTIVE: Iqra West is doing well. She is still only on a nasal cannula at 2 L a minute. She is always on nasal cannula oxygen and she is steroid dependent. She is not wheezing. OBJECTIVE: HEART: Regular rhythm. ABDOMEN: Soft. IMPRESSION: 1. Chronic obstructive pulmonary disease, likely steroid dependent. 2. COVID-19 positive with minimal pulmonary symptoms. If she remains stable, she could probably convalesce at home. Job ID: [id number]
--- NOTE | 2020-03-27 12:20 | PDOC.CPN ---
- Subjective Date: 03/27/20 Time: 08:30 Interval history: No overnight events, she remains in sinus rhythm HR 70-85. She denies any chest pain. She states she had a good night. - Review of Systems General: denies: fever/chills, weight/appetite/sleep changes, night sweats, fatigue Respiratory: denies: cough, congestion, shortness of breath, exercise intolerance Cardiovascular: denies: chest pain, palpitation, edema, paroxysmal nocturnal dyspnea, orthopnea Gastrointestinal: denies: nausea, vomiting, diarrhea, constipation, abd pain, GI bleeding Musculoskeletal: denies: pain, tenderness, stiffness, swelling, arthritis/arthralgias Neurological: denies: numbness, syncope, seizure, weakness - Objective Allergies/Adverse Reactions: Allergies Allergy/AdvReac Type Severity Reaction Status Date / Time acetaminophen Allergy Verified 03/25/20 21:57 nalbuphine [From Nubain] Allergy Verified 03/25/20 21:57 Visit Medications: Current Medications Albuterol Sulfate (Albuterol 200 Puff (6.7gm Inhaler)) 2 puff INH Q4H PRN PRN Reason: Wheezing Albuterol Sulfate (Albuterol 200 Puff (6.7gm Inhaler)) 2 puff INH [id number] [facility] Last Admin: 03/27/20 06:10 Dose: 2 inh Documented by: Ascorbic Acid (Ascorbic Acid 500 Mg Chewable Tablet) 500 mg PO BID [facility] Last Admin: 03/27/20 07:57 Dose: 500 mg Documented by: Aspirin (Aspirin Chewable 81 Mg Tab) 81 mg PO DAILY [facility] Last Admin: 03/27/20 07:57 Dose: 81 mg Documented by: Atorvastatin Calcium (Atorvastatin Calcium 10 Mg Tab) 10 mg PO HS [facility] Last Admin: 03/26/20 20:47 Dose: 10 mg Documented by: Cholecalciferol (Cholecalciferol 1,000 Units (25 Mcg) Tab) 2,000 units PO DAILY [facility] Last Admin: 03/27/20 07:57 Dose: 2,000 units Documented by: Dexamethasone (Dexamethasone 4 Mg/Ml Vial) 6 mg SLOW IVP DAILY [facility] Last Admin: 03/27/20 07:57 Dose: 6 mg Documented by: Digoxin (Digoxin 0.125 Mg Tab) 0.125 mg PO QAM [facility] Last Admin: 03/27/20 07:57 Dose: 0.125 mg Documented by: Diltiazem HCl (Diltiazem Hcl Cd 180 Mg Capsule) 180 mg PO DAILY [facility] Last Admin: 03/27/20 07:58 Dose: 180 mg Documented by: Docusate Sodium (Docusate 100 Mg Cap) 100 mg PO DAILY [facility] Last Admin: 03/27/20 07:58 Dose: 100 mg Documented by: Enoxaparin Sodium (Enoxaparin Sodium 40 Mg/0.4 Ml Syringe) 40 mg SC 0900,2100 [facility] Last Admin: 03/27/20 07:58 Dose: 40 mg Documented by: Guaifenesin/Dextromethorphan (Guaifenesin Dm 100-10/5 Ml Udcup) 15 ml PO Q4H PRN PRN Reason: Cough Hydrochlorothiazide (Hydrochlorothiazide 25 Mg Tab) 12.5 mg PO DAILY [facility] Last Admin: 03/27/20 07:58 Dose: 12.5 mg Documented by: Remdesivir 100 mg/ Sodium (Chloride) 250 mls @ 250 mls/hr IV 1400 [facility] Stop: 03/30/20 14:59 Ibuprofen (Ibuprofen 200 Mg Tab) 400 mg PO Q6H PRN PRN Reason: Fever/Mild Pain Last Admin: 03/26/20 20:47 Dose: 400 mg Documented by: Metoprolol Succinate (Metoprolol Succinate Xl 25 Mg Tab) 25 mg PO DAILY [facility] Last Admin: 03/27/20 07:59 Dose: 25 mg Documented by: Nitroglycerin (Nitroglycerin 0.4 Mg Tab (25 Tab Bottle)) 0.4 mg SL Q5MIN PRN PRN Reason: Chest Pain Last Admin: 03/25/20 21:30 Dose: 1 tab Documented by: Non-Formulary Medication (Topiramate [Trokendi Xr]) 2 tab PO HS [facility] Sodium Chloride (Flush - Normal Saline 10 Ml Syringe) 10 ml IVF PRN PRN PRN Reason: Saline Flush Last Admin: 03/25/20 20:26 Dose: 10 ml Documented by: Zinc Sulfate (Zinc Sulfate 220 Mg Cap) 220 mg PO DAILY [facility] Last Admin: 03/27/20 07:59 Dose: 220 mg Documented by: Vital Signs & Weight: Vital Signs Temp Pulse Resp BP Pulse Ox 03/27/20 08:00 98.5 F 71 20 128/56 L 98 03/27/20 07:57 80 01/13/21 04:00 98.1 F 80 16 108/61 100 Admit Weight 96 lb 9.6 oz Weight 96 lb 9.6 oz - Physical Exam General: alert & oriented x3 HEENT: mucus membranes moist Neck: supple neck, no bruit Cardiac: regular rate and rhythm, no murmur Lungs: oxygen, other (patient wears home O2 at all times at home, wheezes to bilateral lung bases.) Neuro: grossly intact Abdomen: active bowel sounds, soft, non-tender Extremities: no cyanosis, no clubbing, no edema, 2+ Posterior Tibial, 2+ Dorsalis Pedus Skin: clear Musculoskeletal: normal range of motion, no pain - Labs Result Diagrams: 03/25/20 06:21 03/26/20 22:09 Troponin/CKMB CK-MB (CK-2) 1.9 ng/mL (0-6.6) 03/26/20 00:59 Troponin I 0.159 ng/mL (< 0.028) H 03/26/20 04:27 - EKG Interpretation EKG Method: Telemetry EKG: sinus rhythm - Assessment/Plan Assessment/Plan: 1. Atrial fibrillation with RVR: she remains in SR with her HR 70-90's. We will continue PO Cardizem, she is doing well and staying in SR, rate controlled. 2. COVID: treated by primary care sevices, she remains on oxygen 2 L/min via nasal cannula. 3. COPD: Treated by pulmonolgy and primary care services. 4. Dyslipiddemia: will continue Atorvastatin. At this time, she is stable from a cardiac standpoint and we will sign off. She may follow-up as an outpatient in 4-6 weeks when she is recovered from COVID-19.
[2020-03-27] MEDS: REMDESIVIR (EUA) 100 MG in Sodium Chloride 0.9% 250 ML 230 ML IV SCH (13:39)
[2020-03-27] MEDS: Ibuprofen 200 MG TAB PO PRN (13:52)
[2020-03-27] MEDS ORDERED: Electrolyte Replacement Protocol 1 EACH FS SCH (14:30)
[2020-03-27] MEDS ORDERED: Electrolyte Replacement Protocol FS PRN (14:45)
[2020-03-27 15:18] LABS: Phosphorus 3.4 mg/dL (2.3-4.7)
[2020-03-27 15:19] LABS: Anion Gap 20 mmol/L (10-20); BUN (Urea Nitrogen) 21 mg/dL (9.8-20.1); Calc. Creatinine Clearance 44 mL/min (70-130); Calcium 9.2 mg/dL (7.8-10.44); Carbon Dioxide 28 mmol/L (23-31); Chloride 91 mmol/L (98-107); Glucose 208 mg/dL (80-115); Potassium 3.5 mmol/L (3.5-5.1); Sodium 135 mmol/L (136-145)
--- NOTE | 2020-03-27 18:27 | PDOC.HOSPP ---
- Subjective Encounter Date: 03/27/20 Encounter Time: 14:00 Subjective: Patient seen and examined for respiratory failure due to COVID-19 with tachyarrhythmia. Denies any chest pain or palpitations. Shortness of breath improving. Mild dry cough - Objective Vital Signs & Weight: Vital Signs (12 hours) Temp Pulse Resp BP Pulse Ox 03/27/20 12:00 98.4 F 78 20 102/50 L 99 03/27/20 08:00 98.5 F 71 20 128/56 L 100 03/27/20 07:57 80 Weight Admit Weight 96 lb 9.6 oz Weight 96 lb 9.6 oz I&O: 03/26/20 03/27/20 03/28/20 06:59 06:59 06:59 Intake Total 750 1090 400 Output Total 300 850 Balance 450 240 400 Result Diagrams: 03/25/20 06:21 03/27/20 14:45 Additional Labs: Abnormal Lab Results - Last 48 hrs 03/25/20 21:04: Troponin I 0.081 H 03/25/20 21:04: TSH 3rd Generation 0.2441 L 03/26/20 00:59: Troponin I 0.168 H 03/26/20 04:27: C-Reactive Protein 11.70 H 03/26/20 04:27: Troponin I 0.159 H 03/26/20 22:09: Potassium 3.3 L, Chloride 94 L, Carbon Dioxide 32 H 03/27/20 14:45: Sodium 135 L, Chloride 91 L, BUN 21 H Radiology Reviewed by me: Yes (Chest x-rayno new findings) EKG Reviewed by me: Yes (Sinus rhythm on telemetry) Hospitalist ROS - Review of Systems Gastrointestinal: denies: nausea, vomiting, abdominal pain, diarrhea, constipation, melena, hematochezia, other Genitourinary: denies: dysuria, frequency, incontinence, hematuria, retention, other - Medication Medications: Active Medications Generic Name Dose Route Start Last Admin Trade Name Freq PRN Reason Stop Dose Admin Albuterol Sulfate 2 puff 03/25/20 07:00 03/27/20 13:39 Albuterol 200 Puff (6.7gm Inhaler) INH 2 inh [id number] [facility] Administration Ascorbic Acid 500 mg 03/25/20 09:00 03/27/20 07:57 Ascorbic Acid 500 Mg Chewable Tablet PO 500 mg BID [facility] Administration Aspirin 81 mg 03/26/20 09:00 03/27/20 07:57 Aspirin Chewable 81 Mg Tab PO 81 mg DAILY [facility] Administration Atorvastatin Calcium 10 mg 03/25/20 21:00 03/26/20 20:47 Atorvastatin Calcium 10 Mg Tab PO 10 mg HS [facility] Administration Cholecalciferol 2,000 units 03/25/20 09:00 03/27/20 07:57 Cholecalciferol 1,000 Units (25 Mcg) Tab PO 2,000 units DAILY [facility] Administration Dexamethasone 6 mg 03/26/20 09:00 03/27/20 07:57 Dexamethasone 4 Mg/Ml Vial SLOW IVP 6 mg DAILY [facility] Administration Digoxin 0.125 mg 03/26/20 09:00 03/27/20 07:57 Digoxin 0.125 Mg Tab PO 0.125 mg QAM [facility] Administration Diltiazem HCl 180 mg 03/27/20 09:00 03/27/20 07:58 Diltiazem Hcl Cd 180 Mg Capsule PO 180 mg DAILY [facility] Administration Docusate Sodium 100 mg 03/26/20 09:00 03/27/20 07:58 Docusate 100 Mg Cap PO 100 mg DAILY [facility] Administration Enoxaparin Sodium 40 mg 03/25/20 21:00 03/27/20 07:58 Enoxaparin Sodium 40 Mg/0.4 Ml Syringe SC 40 mg 0900,2100 [facility] Administration Hydrochlorothiazide 12.5 mg 03/26/20 09:00 03/27/20 07:58 Hydrochlorothiazide 25 Mg Tab PO 12.5 mg DAILY [facility] Administration Remdesivir 100 mg/ Sodium 250 mls @ 250 mls/hr 03/27/20 14:00 03/27/20 13:39 Chloride IV 03/30/20 14:59 250 mls 1400 [facility] Administration Ibuprofen 400 mg 03/25/20 21:18 03/27/20 13:52 Ibuprofen 200 Mg Tab PO 400 mg Q6H PRN Administration Fever/Mild Pain Metoprolol Succinate 25 mg 03/26/20 09:00 03/27/20 07:59 Metoprolol Succinate Xl 25 Mg Tab PO 25 mg DAILY [facility] Administration Nitroglycerin 0.4 mg 03/25/20 20:53 03/25/20 21:30 Nitroglycerin 0.4 Mg Tab (25 Tab Bottle) SL 1 tab Q5MIN PRN Administration Chest Pain Sodium Chloride 10 ml 03/25/20 00:45 03/25/20 20:26 Flush - Normal Saline 10 Ml Syringe IVF 10 ml PRN PRN Administration Saline Flush Zinc Sulfate 220 mg 03/25/20 09:00 03/27/20 07:59 Zinc Sulfate 220 Mg Cap PO 220 mg DAILY [facility] Administration - Exam General Appearance: ill appearing Heart: RRR, no gallops, no rubs Respiratory: no wheezes, no rales, rhonchi Gastrointestinal: soft, no guarding, no rigidity Extremities: no cyanosis, no clubbing Neurological: no new deficit Musculoskeletal: generalized weakness Psychiatric: normal affect, A&O x 3 Hosp A/P - Plan DVT proph w/SCDs Acute on chronic hypoxic respiratory failure due to COVID-19 infection with suspected COVID-19 pneumoniaPOA COPD exacerbation Atrial fibrillation with rapid ventricular response Moderate protein calorie malnutrition Chronic anemia suspected due to nutritional deficiency Hypokalemia Hyponatremia Hypomagnesemia Plan: S/p convalescent plasma. Remdesivir started. Continue bronchodilators with steroids. Continue digoxin with Cardizem for atrial fibrillation. Continue beta-blockers. Replace electrolytes continue Lovenox 40 mg twice daily.
--- NOTE | 2020-03-27 20:14 | PRG ---
DATE OF SERVICE: 03/27/2020 SUBJECTIVE: Ms. West is stable. She is still on nasal cannula. She has no respiratory complaints. Her hemodynamics and vital signs remained stable. Clinically she is unchanged overall. Unfortunately, she was admitted on the , and remdesivir was not started until today. It is very debatable whether this drug will help her. It has been shown to decrease duration of illness, but not to change mortality,if started early. Given the clinical course and her stability,it would not be unreasonable to consider discharge since she has had convalescent plasma. She can be followed as an outpatient within the next 4 to 6 weeks. Job ID: [id number] MTDD
[2020-03-27] MEDS: Atorvastatin Calcium 10 MG TAB PO SCH (20:26)
[2020-03-28] MEDS: Albuterol 200 PUFF (6.7GM INHALER) INH SCH ×4 (03:44→17:18)
[2020-03-28 05:36] LABS: #Lymphocytes 1.1 thou/uL (1.20-3.40); #Monocytes 1.1 thou/uL (0.11-0.59); %Basophils 0.3 % (0.0-1.0); %Eosinophils 0.2 % (0.0-10.0); %Lymphocytes 15.4 % (21.0-51.0); %Monocytes 14.6 % (0.0-10.0); %Neutrophils 69.5 % (42.0-75.0); Hemoglobin 12.3 g/dL (12.0-16.0); Mean Corpuscular HGB CONC 32.4 g/dL (32.0-36.0); Mean Corpuscular Volume 95.4 fL (78.0-98.0); Mean Platelet Volume 7.8 fL (7.4-10.4); Platelet Count 231 thou/uL (130-400); RBC Distribution Width 12.4 % (11.5-14.5); Red Blood Cell (RBC) Count 3.98 mill/uL (4.20-5.40); White Blood Cell (WBC) Count 7.2 thou/uL (4.8-10.8)
[2020-03-28 05:59] LABS: ALT (SGPT) 29 U/L (8-55); AST (SGOT) 34 U/L (5-34); Albumin 3.7 g/dL (3.4-4.8); Alkaline Phosphatase 47 U/L (40-110); Anion Gap 14 mmol/L (10-20); BUN (Urea Nitrogen) 21 mg/dL (9.8-20.1); Bilirubin, Total 0.4 mg/dL (0.2-1.2); Calc. Creatinine Clearance 50 mL/min (70-130); Calcium 9.3 mg/dL (7.8-10.44); Carbon Dioxide 33 mmol/L (23-31); Chloride 92 mmol/L (98-107); Globulin 2.9 g/dL (2.4-3.5); Glucose 121 mg/dL (80-115); Protein, Total 6.6 g/dL (6.0-8.3); Sodium 135 mmol/L (136-145)
[2020-03-28] MEDS ORDERED: Magnesium 2 GM/50 ML 2 GM in Premix Bag 1 BAG IVPB SCH (06:30)
[2020-03-28] MEDS: Ascorbic Acid 500 mg Chewable Tablet PO SCH ×2 (10:11→21:12)
[2020-03-28] MEDS: Aspirin Chewable 81 MG TAB PO SCH (10:11)
[2020-03-28] MEDS: Dexamethasone 4 mg/ml Vial SLOW IVP SCH (10:11)
[2020-03-28] MEDS: Cholecalciferol 1,000 UNITS (25 MCG) TAB PO SCH (10:11)
[2020-03-28] MEDS: Docusate 100 MG CAP PO SCH (10:12)
[2020-03-28] MEDS: Zinc Sulfate 220 MG CAP PO SCH (10:12)
[2020-03-28] MEDS: Enoxaparin Sodium 40 MG/0.4 ML SYRINGE SC SCH ×2 (10:12→21:12)
[2020-03-28] MEDS: Hydrochlorothiazide 25 MG TAB PO SCH (10:12)
[2020-03-28] MEDS: Digoxin 0.125 MG TAB PO SCH (11:03)
[2020-03-28] MEDS: Ibuprofen 200 MG TAB PO PRN (11:03)
[2020-03-28] MEDS: REMDESIVIR (EUA) 100 MG in Sodium Chloride 0.9% 250 ML 230 ML IV SCH (13:15)
--- NOTE | 2020-03-28 17:30 | PDOC.HOSPP ---
- Subjective Encounter Date: 03/28/20 Encounter Time: 11:30 Subjective: Patient seen and examined for respiratory failure due to COVID-19 pneumonia. Short of breath on minimal exertion. Had some episodes of O2 desaturation. Some cough with minimal production. - Objective Vital Signs & Weight: Weight Admit Weight 96 lb 9.6 oz Weight 96 lb 9.6 oz I&O: 03/27/20 03/28/20 03/29/20 06:59 06:59 06:59 Intake Total 1090 700 Output Total 850 Balance 240 700 Result Diagrams: 03/28/20 05:00 03/28/20 05:00 Additional Labs: Abnormal Lab Results - Last 48 hrs 03/26/20 22:09: Potassium 3.3 L, Chloride 94 L, Carbon Dioxide 32 H 03/27/20 14:45: Sodium 135 L, Chloride 91 L, BUN 21 H 03/28/20 05:00: Sodium 135 L, Chloride 92 L, Carbon Dioxide 33 H, BUN 21 H, C-Reactive Protein 7.70 H 03/28/20 05:00: RBC 3.98 L, Lymphocytes % 15.4 L, Monocytes % 14.6 H, Lymphocytes # 1.1 L, Monocytes # 1.1 H 03/28/20 05:00: D-Dimer 0.44 H EKG Reviewed by me: Yes (Sinus rhythm on telemetry) Hospitalist ROS - Review of Systems Cardiovascular: denies: chest pain, palpitations, orthopnea, paroxysmal noc. dyspnea, edema, light headedness, other Gastrointestinal: denies: nausea, vomiting, abdominal pain, diarrhea, constipation, melena, hematochezia, other - Medication Medications: Active Medications Generic Name Dose Route Start Last Admin Trade Name Freq PRN Reason Stop Dose Admin Albuterol Sulfate 2 puff 03/25/20 07:00 03/28/20 17:18 Albuterol 200 Puff (6.7gm Inhaler) INH 2 inh [id number] [facility] Administration Ascorbic Acid 500 mg 03/25/20 09:00 03/28/20 10:11 Ascorbic Acid 500 Mg Chewable Tablet PO 500 mg BID [facility] Administration Aspirin 81 mg 03/26/20 09:00 03/28/20 10:11 Aspirin Chewable 81 Mg Tab PO 81 mg DAILY [facility] Administration Atorvastatin Calcium 10 mg 03/25/20 21:00 03/27/20 20:26 Atorvastatin Calcium 10 Mg Tab PO 10 mg HS [facility] Administration Cholecalciferol 2,000 units 03/25/20 09:00 03/28/20 10:11 Cholecalciferol 1,000 Units (25 Mcg) Tab PO 2,000 units DAILY [facility] Administration Dexamethasone 6 mg 03/26/20 09:00 03/28/20 10:11 Dexamethasone 4 Mg/Ml Vial SLOW IVP 6 mg DAILY [facility] Administration Diltiazem HCl 180 mg 03/27/20 09:00 03/28/20 10:12 Diltiazem Hcl Cd 180 Mg Capsule PO 180 mg DAILY [facility] Administration Docusate Sodium 100 mg 03/26/20 09:00 03/28/20 10:12 Docusate 100 Mg Cap PO 100 mg DAILY [facility] Administration Enoxaparin Sodium 40 mg 03/25/20 21:00 03/28/20 10:12 Enoxaparin Sodium 40 Mg/0.4 Ml Syringe SC 40 mg 0900,2100 [facility] Administration Hydrochlorothiazide 12.5 mg 03/26/20 09:00 03/28/20 10:12 Hydrochlorothiazide 25 Mg Tab PO 12.5 mg DAILY [facility] Administration Remdesivir 100 mg/ Sodium 250 mls @ 250 mls/hr 03/27/20 14:00 03/28/20 13:15 Chloride IV 03/30/20 14:59 250 mls 1400 [facility] Administration Ibuprofen 400 mg 03/25/20 21:18 03/28/20 11:03 Ibuprofen 200 Mg Tab PO 400 mg Q6H PRN Administration Fever/Mild Pain Metoprolol Succinate 25 mg 03/26/20 09:00 03/28/20 10:10 Metoprolol Succinate Xl 25 Mg Tab PO 25 mg DAILY [facility] Administration Nitroglycerin 0.4 mg 03/25/20 20:53 03/25/20 21:30 Nitroglycerin 0.4 Mg Tab (25 Tab Bottle) SL 1 tab Q5MIN PRN Administration Chest Pain Sodium Chloride 10 ml 03/25/20 00:45 03/25/20 20:26 Flush - Normal Saline 10 Ml Syringe IVF 10 ml PRN PRN Administration Saline Flush Zinc Sulfate 220 mg 03/25/20 09:00 03/28/20 10:12 Zinc Sulfate 220 Mg Cap PO 220 mg DAILY [facility] Administration - Exam General Appearance: ill appearing Neck: supple, no JVD Heart: RRR Respiratory: no wheezes, rales, rhonchi Gastrointestinal: soft, non-tender, normal bowel sounds Extremities: no cyanosis Neurological: no new deficit Psychiatric: A&O x 3 Hosp A/P - Plan DVT proph w/lovenox, DVT proph w/SCDs Acute on chronic hypoxic respiratory failure due to COVID-19 infection with suspected COVID-19 pneumonia COPD exacerbation Atrial fibrillation with rapid ventricular response Moderate protein calorie malnutrition Chronic anemia suspected due to nutritional deficiency Hypokalemia Hyponatremia Hypomagnesemia Plan: Patient continues to have O2 desaturation and high 70s on and off especially on mild exertion. Will obtain chest x-ray in a.m. Continue O2 supplementation wi th remdesivir and dexamethasone. Digoxin discontinued by cardiology. Continue Cardizem. Continue Lovenox for DVT prophylaxis. Recheck labs including inflammatory markers. GI prophylaxis
[2020-03-28] MEDS: Atorvastatin Calcium 10 MG TAB PO SCH (21:12)
[2020-03-29] MEDS: Albuterol 200 PUFF (6.7GM INHALER) INH SCH ×4 (04:05→18:23)
[2020-03-29 05:16] LABS: #Lymphocytes 1.1 thou/uL (1.20-3.40); #Monocytes 1.2 thou/uL (0.11-0.59); #Neutrophils 6.6 thou/uL (1.40-6.50); %Basophils 0.2 % (0.0-1.0); %Eosinophils 0.1 % (0.0-10.0); %Lymphocytes 12.3 % (21.0-51.0); %Monocytes 13.7 % (0.0-10.0); %Neutrophils 73.7 % (42.0-75.0); Hemoglobin 11.6 g/dL (12.0-16.0); Mean Corpuscular HGB CONC 30.8 g/dL (32.0-36.0); Mean Corpuscular Hemoglobin 29.1 pg (27.0-31.0); Mean Corpuscular Volume 94.6 fL (78.0-98.0); Mean Platelet Volume 7.6 fL (7.4-10.4); Platelet Count 245 thou/uL (130-400); RBC Distribution Width 12.4 % (11.5-14.5)
[2020-03-29 05:35] LABS: Anion Gap 16 mmol/L (10-20); BUN (Urea Nitrogen) 26 mg/dL (9.8-20.1); Calc. Creatinine Clearance 52 mL/min (70-130); Carbon Dioxide 34 mmol/L (23-31); Chloride 90 mmol/L (98-107); Potassium 3.8 mmol/L (3.5-5.1); Sodium 136 mmol/L (136-145)
[2020-03-29 05:36] LABS: ALT (SGPT) 29 U/L (8-55); AST (SGOT) 36 U/L (5-34); Albumin 3.4 g/dL (3.4-4.8); Alkaline Phosphatase 44 U/L (40-110); Bilirubin, Total 0.4 mg/dL (0.2-1.2); CRP (Inflammatory) 4.11 mg/dL (= or < 0.5); Calcium 8.9 mg/dL (7.8-10.44); Globulin 2.7 g/dL (2.4-3.5); Glucose 123 mg/dL (80-115); Protein, Total 6.1 g/dL (6.0-8.3)
[2020-03-29] MEDS ORDERED: Magnesium 2 GM/50 ML 2 GM in Premix Bag 1 BAG IVPB SCH (06:30)
[2020-03-29] MEDS: Hydrochlorothiazide 25 MG TAB PO SCH (07:39)
[2020-03-29] MEDS: Docusate 100 MG CAP PO SCH (07:39)
[2020-03-29] MEDS: Cholecalciferol 1,000 UNITS (25 MCG) TAB PO SCH (07:40)
[2020-03-29] MEDS: Aspirin Chewable 81 MG TAB PO SCH (07:40)
[2020-03-29] MEDS: Zinc Sulfate 220 MG CAP PO SCH (07:40)
[2020-03-29] MEDS: Dexamethasone 4 mg/ml Vial SLOW IVP SCH (07:41)
[2020-03-29] MEDS: Enoxaparin Sodium 40 MG/0.4 ML SYRINGE SC SCH ×2 (07:41→20:13)
[2020-03-29] MEDS: Ascorbic Acid 500 mg Chewable Tablet PO SCH ×2 (07:41→20:13)
--- NOTE | 2020-03-29 07:59 | RAD ---
EXAM: Single view of the chest HISTORY: Shortness of breath. Covid pneumonia COMPARISON: 03/22/2020, 03/24/2020 FINDINGS: Single view of the chest shows a normal sized cardiomediastinal silhouette. Hyperexpansion lungs is consistent with COPD. There is no evidence of consolidation, mass, or pleural effusion. Hardware is seen in the cervical spine. IMPRESSION: No evidence of acute cardiopulmonary disease
[2020-03-29] MEDS: REMDESIVIR (EUA) 100 MG in Sodium Chloride 0.9% 250 ML 230 ML IV SCH (13:32)
--- NOTE | 2020-03-29 13:51 | PRG ---
DATE OF SERVICE: 03/29/2020 SUBJECTIVE: Ms. West is afebrile. OBJECTIVE: VITAL SIGNS: Heart rates in the , respiratory rate is 20. She is still on 2 L/minute on oxygen. Blood pressure LUNGS: Unchanged. HEART: Unchanged. ABDOMEN: Unchanged. LABORATORY DATA: Chest x-ray is unremarkable. She has no infiltrates. IMPRESSION AND PLAN: COVID-19 infection not causing any pulmonary problems. I doubt remdesivir will make any difference with her. She is ready to go home. I would suggest giving her dose of remdesivir this morning and giving her dose early tomorrow morning and then sending her home. She will stay on 20 mg of prednisone a day until she sees me in a month. Job ID: [id number]
[2020-03-29] MEDS: Ibuprofen 200 MG TAB PO PRN (16:19)
--- NOTE | 2020-03-29 19:59 | PDOC.HOSPP ---
- Subjective Encounter Date: 03/29/20 Encounter Time: 18:15 Subjective: Patient seen and examined for respiratory failure due to COVID-19 pneumonia. Shortness of breath improving. Mild dry cough. Denies any nausea or vomiting. - Objective Vital Signs & Weight: Vital Signs (12 hours) Temp Pulse Resp BP Pulse Ox 03/29/20 15:17 98.3 F 68 20 127/58 L 100 03/29/20 12:25 98.3 F 60 20 113/58 L Weight Admit Weight 96 lb 9.6 oz Weight 96 lb 9.6 oz I&O: 03/28/20 03/29/20 03/30/20 06:59 06:59 06:59 Intake Total 700 1100 948 Output Total 602 Balance 700 498 948 Result Diagrams: 03/29/20 04:36 03/29/20 04:36 Additional Labs: Abnormal Lab Results - Last 48 hrs 03/28/20 05:00: Sodium 135 L, Chloride 92 L, Carbon Dioxide 33 H, BUN 21 H, C- Reactive Protein 7.70 H 03/28/20 05:00: RBC 3.98 L, Lymphocytes % 15.4 L, Monocytes % 14.6 H, Lymphocytes # 1.1 L, Monocytes # 1.1 H 03/28/20 05:00: D-Dimer 0.44 H 03/29/20 04:36: Chloride 90 L, Carbon Dioxide 34 H, BUN 26 H, AST 36 H, C- Reactive Protein 4.11 H 03/29/20 04:36: RBC 4.00 L, Hgb 11.6 L, MCHC 30.8 L, Lymphocytes % 12.3 L, Monocytes % 13.7 H, Neutrophils # 6.6 H, Lymphocytes # 1.1 L, Monocytes # 1.2 H Radiology Reviewed by me: Yes (Chest x-rayno new changes) EKG Reviewed by me: Yes (Sinus rhythm on telemetry) Hospitalist ROS - Review of Systems Cardiovascular: denies: chest pain, palpitations, orthopnea, paroxysmal noc. dyspnea, edema, light headedness, other Gastrointestinal: denies: nausea, vomiting, abdominal pain, diarrhea, constipation, melena, hematochezia, other - Medication Medications: Active Medications Generic Name Dose Route Start Last Admin Trade Name Freq PRN Reason Stop Dose Admin Albuterol Sulfate 2 puff 03/25/20 07:00 03/29/20 18:23 Albuterol 200 Puff (6.7gm Inhaler) INH 2 inh [id number] KHANH Administration Ascorbic Acid 500 mg 03/25/20 09:00 03/29/20 07:41 Ascorbic Acid 500 Mg Chewable Tablet PO 500 mg BID KHANH Administration Aspirin 81 mg 03/26/20 09:00 03/29/20 07:40 Aspirin Chewable 81 Mg Tab PO 81 mg DAILY KHANH Administration Atorvastatin Calcium 10 mg 03/25/20 21:00 03/28/20 21:12 Atorvastatin Calcium 10 Mg Tab PO 10 mg HS KHANH Administration Cholecalciferol 2,000 units 03/25/20 09:00 03/29/20 07:40 Cholecalciferol 1,000 Units (25 Mcg) Tab PO 2,000 units DAILY KHANH Administration Dexamethasone 6 mg 03/26/20 09:00 03/29/20 07:41 Dexamethasone 4 Mg/Ml Vial SLOW IVP 6 mg DAILY KHANH Administration Diltiazem HCl 180 mg 03/27/20 09:00 03/29/20 07:41 Diltiazem Hcl Cd 180 Mg Capsule PO 180 mg DAILY KHANH Administration Docusate Sodium 100 mg 03/26/20 09:00 03/29/20 07:39 Docusate 100 Mg Cap PO 100 mg DAILY KHANH Administration Enoxaparin Sodium 40 mg 03/25/20 21:00 03/29/20 07:41 Enoxaparin Sodium 40 Mg/0.4 Ml Syringe SC 40 mg 0900,2100 KHANH Administration Hydrochlorothiazide 12.5 mg 03/26/20 09:00 03/29/20 07:39 Hydrochlorothiazide 25 Mg Tab PO 12.5 mg DAILY KHANH Administration Remdesivir 100 mg/ Sodium 250 mls @ 250 mls/hr 03/27/20 14:00 03/29/20 13:32 Chloride IV 03/30/20 14:59 250 mls 1400 KHANH Administration Ibuprofen 400 mg 03/25/20 21:18 03/29/20 16:19 Ibuprofen 200 Mg Tab PO 400 mg Q6H PRN Administration Fever/Mild Pain Metoprolol Succinate 25 mg 03/26/20 09:00 03/29/20 07:40 Metoprolol Succinate Xl 25 Mg Tab PO 25 mg DAILY KHANH Administration Nitroglycerin 0.4 mg 03/25/20 20:53 03/25/20 21:30 Nitroglycerin 0.4 Mg Tab (25 Tab Bottle) SL 1 tab Q5MIN PRN Administration Chest Pain Pantoprazole Sodium 40 mg 03/28/20 21:00 03/28/20 21:12 Pantoprazole 40 Mg Tab PO 40 mg HS KHANH Administration Sodium Chloride 10 ml 03/25/20 00:45 03/29/20 07:41 Flush - Normal Saline 10 Ml Syringe IVF 10 ml PRN PRN Administration Saline Flush Zinc Sulfate 220 mg 03/25/20 09:00 03/29/20 07:40 Zinc Sulfate 220 Mg Cap PO 220 mg DAILY KHANH Administration - Exam General Appearance: awake alert Neck: supple, no JVD Heart: RRR, no gallops Respiratory: rales, rhonchi Gastrointestinal: soft, non-distended, no guarding Extremities: no cyanosis Hosp A/P - Plan DVT proph w/lovenox, DVT proph w/SCDs Acute on chronic hypoxic respiratory failure due to COVID-19 infection with suspected COVID-19 pneumonia COPD exacerbation Transient atrial fibrillation with rapid ventricular responseprobably due to COVID-19converted to sinus rhythm Moderate protein calorie malnutrition Chronic anemia suspected due to nutritional deficiency Hypokalemia Hyponatremia Hypomagnesemia Plan: Overall patient improving. Inflammatory markers downtrending. Chest x-ray reviewed. Will continue remdesivir. Continue bronchodilators. Replace magnesium. Continue dexamethasone with steroids. Continue other medications as above
[2020-03-29] MEDS: Atorvastatin Calcium 10 MG TAB PO SCH (20:13)
[2020-03-30] MEDS: Albuterol 200 PUFF (6.7GM INHALER) INH SCH ×2 (01:40→06:28)
[2020-03-30 05:27] LABS: ALT (SGPT) 29 U/L (8-55); AST (SGOT) 34 U/L (5-34); Albumin 3.2 g/dL (3.4-4.8); Alkaline Phosphatase 48 U/L (40-110); Anion Gap 19 mmol/L (10-20); BUN (Urea Nitrogen) 21 mg/dL (9.8-20.1); Bilirubin, Total 0.5 mg/dL (0.2-1.2); Calc. Creatinine Clearance 52 mL/min (70-130); Calcium 8.9 mg/dL (7.8-10.44); Carbon Dioxide 26 mmol/L (23-31); Chloride 91 mmol/L (98-107); Globulin 3.2 g/dL (2.4-3.5); Glucose 115 mg/dL (80-115); Potassium 4.1 mmol/L (3.5-5.1); Protein, Total 6.4 g/dL (6.0-8.3); Sodium 132 mmol/L (136-145)
[2020-03-30] MEDS: Hydrochlorothiazide 25 MG TAB PO SCH (07:51)
[2020-03-30] MEDS: Dexamethasone 4 mg/ml Vial SLOW IVP SCH (07:51)
[2020-03-30] MEDS: Zinc Sulfate 220 MG CAP PO SCH (07:52)
[2020-03-30] MEDS: Cholecalciferol 1,000 UNITS (25 MCG) TAB PO SCH (07:52)
[2020-03-30] MEDS: Ascorbic Acid 500 mg Chewable Tablet PO SCH (07:52)
[2020-03-30] MEDS: Docusate 100 MG CAP PO SCH (07:52)
[2020-03-30] MEDS ORDERED: Aspirin 325 mg Enteric Coated Tablet PO SCH (09:00)
[2020-03-30 11:59] VITALS: BP 113/62; TEMP 96
[2020-03-30] MEDS: REMDESIVIR (EUA) 100 MG in Sodium Chloride 0.9% 250 ML 230 ML IV SCH (12:27)
--- NOTE | 2020-03-30 17:28 | PDOC.DS.DS ---
Provider - Provider Date of Admission: 03/25/20 00:10 Date of Discharge: 03/30/20 Admitting Provider: Tree Johnson MD Consultations: Cardiology, Pulmonary Primary Care Physician: SHIVAM NEWMAN MD Course - Hospital Course Hospital Course: Patient is a 70-year-old female with COPD and chronic hypoxic respiratory failure on home oxygen presented to the emergency room with fever along with shortness of breath on 03/25. Chest x-ray was negative for infiltrate. O2 supplementation was continued. Her temperature on ER arrival was 102.3 the patient was admitted to the hospital with a diagnosis of acute respiratory failure due to COPD exacerbation and COVID-19 infection. Patient was evaluated by pulmonary Dr. Jordan. Due to high risk of decompensation from underlying COPD she was started on remdesivir along with dexamethasone. Patient converted to atrial fibrillation with rapid ventricular response for which she was evaluated by cardiology Dr. Escudero. She was started on Cardizem drip that was later transitioned to oral Cardizem. Metoprolol was continued. Metoprolol dose was not increased due to underlying COPD. Cardiology recommended 325 mg aspirin for anticoagulation. Patient was advised to follow-up with primary ca rdiologist. Echocardiogram was not done due to active Covid infection. Repeat chest x-ray on 03/29 showed stable findings. Patient has been cleared by consultants for discharge. Final diagnosis: Acute on chronic hypoxic respiratory failure due to COVID-19 infection with s uspected COVID-19 pneumonia COPD exacerbation Transient atrial fibrillation with rapid ventricular responseprobably due to COVID-19converted to sinus rhythm Moderate protein calorie malnutrition Chronic anemia suspected due to nutritional deficiency Hypokalemia Hyponatremia Hypomagnesemia Resuscitation Status: 03/25/20 02:03 Resuscitation Status Routine Resuscitation Status: FULL: Full Resuscitation - Labs Lab Results: 03/29/20 04:36 03/30/20 04:51 Abnormal Lab Results - Last 48 hrs 03/29/20 04:36: Chloride 90 L, Carbon Dioxide 34 H, BUN 26 H, AST 36 H, C- Reactive Protein 4.11 H 03/29/20 04:36: RBC 4.00 L, Hgb 11.6 L, MCHC 30.8 L, Lymphocytes % 12.3 L, Monocytes % 13.7 H, Neutrophils # 6.6 H, Lymphocytes # 1.1 L, Monocytes # 1.2 H 03/30/20 04:51: Sodium 132 L, Chloride 91 L, BUN 21 H, Albumin 3.2 L, Albumin/Globulin Ratio 1.0 L - Physical Exam Vitals: Vital Signs (12 hours) Temp Pulse Resp BP Pulse Ox 03/30/20 11:58 96 F L 68 18 113/62 96 03/30/20 08:54 100 03/30/20 07:54 97.1 F L 63 16 114/55 L 91 L Weight Admit Weight 96 lb 9.6 oz Weight 96 lb 9.6 oz Physical Exam: The patient was seen and examined on the day of discharge. Plan - Discharge Medications Prescriptions: Diltiazem HCl [Cardizem CD] 180 mg PO DAILY #30 cap Dexamethasone 6 mg PO ASDIR #7 tablet Pantoprazole [Protonix] 40 mg PO DAILY #30 tab Zinc Sulfate 220 mg PO DAILY #30 cap Home Medications: Medication Instructions Recorded Confirmed Type Albuterol Sulfate [Albuterol 1 puff INH QID 03/11/17 03/25/20 History Sulfate Neb] Albuterol Sulfate [Proair HFA] 1 puff INH ASDIR PRN 03/11/17 03/25/20 History Aspirin [Jose Chewable Aspirin] 325 mg PO DAILY 03/11/17 03/30/20 History Atorvastatin Calcium [Lipitor] 1 tab PO HS 03/11/17 03/25/20 History Docusate Sodium [DOK] 1 tab PO DAILY 03/11/17 03/25/20 History HYDROcodone Bit/APAP 5/325 [[place]] 1 tab PO Q8HR PRN 03/11/17 03/25/20 History Metoprolol [place]/Hydrochlorothiaz 1 tab PO DAILY 03/11/17 03/25/20 History [Metoprolol ER-Hctz 25-12.5 mg] Rizatriptan Benzoate [Maxalt-[employer]] 1 tab PO DAILY 03/11/17 03/25/20 History Topiramate [Trokendi XR] 2 tab PO HS 03/11/17 03/25/20 History Umeclidinium Brm/Vilanterol Tr 1 puff INH DAILY 03/11/17 03/25/20 History [Anoro Ellipta] traMADol HCl [Tramadol HCl] 1 tab PO BID 03/11/17 03/25/20 History Ascorbic Acid [Vitamin C] 500 mg PO BID tab 03/30/20 Rx Dexamethasone 6 mg PO ASDIR #7 tablet 03/30/20 Rx Diltiazem HCl [Cardizem CD] 180 mg PO DAILY #30 cap 03/30/20 Rx Pantoprazole [Protonix] 40 mg PO DAILY #30 tab 03/30/20 Rx Zinc Sulfate 220 mg PO DAILY #30 cap 03/30/20 Rx Allergies: acetaminophen Allergy (Verified 03/25/20 21:57) nalbuphine [From Nubain] Allergy (Verified 03/25/20 21:57) - Discharge Instructions Discharge Instructions:: Cont Prednisone 20 mg daily until you see Dr Herrera - Follow up Plan Referrals: SHIVAM NEWMAN [Primary Care Provider] - 7 Days Maame Sevilla MD [MD Not on Staff] - 7 Days Prakash Herrera MD [Active] - 7 Days Disposition: HOME Quality - Care Measures CORE MEASURES:: N/A
== END 2020-03-30 14:18 | disposition home or self-care (01) | DRG 177 ==
LOC: T4-A 00:10 → 2SW 16:36
PROVIDERS: ADMIT Internal Medicine; ATTEND Internal Medicine
PROC: 8E0ZXY6 Isolation (ICD-10-PCS; principal; 2020-03-25)
PROC: XW13325 Transfusion of Convalescent Plasma (Nonautologous) into Peripheral Vein, Percutaneous Approach, New Technology Group 5 (ICD-10-PCS; 2020-03-25)
PROC: XW033E5 Introduction of Remdesivir Anti-infective into Peripheral Vein, Percutaneous Approach, New Technology Group 5 (ICD-10-PCS; 2020-03-26)
DX: U07.1 COVID-19 (principal); J96.21 Acute and chronic respiratory failure with hypoxia; J12.82 Pneumonia due to coronavirus disease 2019; J44.1 Chronic obstructive pulmonary disease with (acute) exacerbation; J44.0 Chronic obstructive pulmonary disease with (acute) lower respiratory infection; E44.0 Moderate protein-calorie malnutrition; Z68.1 Body mass index [BMI] 19.9 or less, adult; E87.1 Hypo-osmolality and hyponatremia; E78.5 Hyperlipidemia, unspecified; I48.0 Paroxysmal atrial fibrillation; D53.9 Nutritional anemia, unspecified; E87.6 Hypokalemia; E83.42 Hypomagnesemia; Z88.8 Allergy status to other drugs, medicaments and biological substances; Z98.890 Other specified postprocedural states; Z87.891 Personal history of nicotine dependence; Z79.82 Long term (current) use of aspirin; Z99.81 Dependence on supplemental oxygen
CPT/HCPCS: 36415; 36416; 36430; 71045; 80048; 80051; 80053; 80076; 82553; 82728; 83735; 84100; 84443; 84484; 85025; 85379; 86140; 86850; 86900; 86901; 93005; 93010; J1100; J1160; J1650; J3475; J3490; J7050; J7512; P9017

== ENCOUNTER 2020-07-07 21:11 | Observation (INO) | payer MEDICARE ==
[2020-07-07 23:15] VITALS: BMI 19.7
[2020-07-07] MEDS ORDERED: Aspirin 325 MG TAB PO SCH (23:30)
[2020-07-08] MEDS ORDERED: Senokot S 8.6-50 MG TAB PO PRN (00:01)
[2020-07-08] MEDS ORDERED: Acetaminophen 325 MG TAB PO PRN (00:01)
[2020-07-08] MEDS ORDERED: Rizatriptan Benzoate 10 MG MLT TAB PO PRN (00:23)
[2020-07-08] MEDS ORDERED: Lorazepam 0.5 MG TAB PO PRN (00:23)
[2020-07-08] MEDS ORDERED: Nitroglycerin 0.4 MG TAB (25 Tab Bottle) SL PRN (00:48)
[2020-07-08] MEDS ORDERED: traMADol HCl 50 MG TAB PO PRN (00:51)
[2020-07-08 01:13] LABS: Troponin I Less than 0.010 ng/mL (< 0.028)
[2020-07-08 01:27] LABS: Thyroid Stimulating Hormone 0.1333 uIU/mL (0.35-4.94)
[2020-07-08] MEDS ORDERED: Albuterol 200 PUFF (6.7GM INHALER) INH PRN (01:38)
[2020-07-08] MEDS: Nitroglycerin 2% Ointment 1 INCH/1 GM Packet TOP SCH ×2 (02:01→06:08)
[2020-07-08 03:58] LABS: Free T4 (Free Thyroxine) 0.92 ng/dL (0.70-1.48)
[2020-07-08 05:54] LABS: Troponin I 0.012 ng/mL (< 0.028)
[2020-07-08 05:58] LABS: BUN (Urea Nitrogen) 12 mg/dL (9.8-20.1); Calc. Creatinine Clearance 57 mL/min (70-130); Calcium 9.2 mg/dL (7.8-10.44); Cardiac Risk 2.1 (Less than 4.5); Cholesterol 209 mg/dl (< 200 Desired); Glucose 89 mg/dL (80-115); HDL Cholesterol 99 mg/dL (>60 Neg Risk); LDL Cholesterol, Calculated 96 mg/dL; Triglycerides 68 mg/dL (Less than 150)
[2020-07-08 06:01] LABS: #Eosinphils 0.2 thou/uL (0.0-0.7); #Lymphocytes 1.8 thou/uL (1.20-3.40); #Neutrophils 5.7 thou/uL (1.40-6.50); %Basophils 0.5 % (0.0-1.0); %Eosinophils 2.3 % (0.0-10.0); %Monocytes 10.9 % (0.0-10.0); %Neutrophils 65.4 % (42.0-75.0); Anisocytosis SLIGHT = 6-15 cells (100X) (0-5/hpf); Hemoglobin 10.2 g/dL (12.0-16.0); MDiff Complete? YES; Mean Corpuscular HGB CONC 29.7 g/dL (32.0-36.0); Mean Corpuscular Hemoglobin 29.6 pg (27.0-31.0); Mean Corpuscular Volume 99.7 fL (78.0-98.0); Mean Platelet Volume 7.1 fL (7.4-10.4); Platelet Count 168 thou/uL (130-400); RBC Distribution Width 14.4 % (11.5-14.5); Red Blood Cell (RBC) Count 3.44 mill/uL (4.20-5.40); White Blood Cell (WBC) Count 8.7 thou/uL (4.8-10.8)
[2020-07-08 06:07] LABS: Anion Gap 15 mmol/L (10-20); Carbon Dioxide 33 mmol/L (23-31); Chloride 99 mmol/L (98-107); Potassium 3.4 mmol/L (3.5-5.1); Sodium 144 mmol/L (136-145)
[2020-07-08] MEDS ORDERED: Arformoterol 15 MCG/2 ML NEB NEB SCH (09:00)
[2020-07-08] MEDS ORDERED: Famotidine 20 MG TAB PO SCH (09:00)
[2020-07-08] MEDS ORDERED: Enoxaparin Sodium 40 MG/0.4 ML SYRINGE SC SCH (09:00)
[2020-07-08] MEDS ORDERED: Montelukast Sodium 10 mg Tablet PO SCH (09:00)
[2020-07-08] MEDS ORDERED: Budesonide 0.5 MG/2 ML NEB NEB SCH (09:00)
[2020-07-08] MEDS ORDERED: predniSONE 20 MG TAB PO SCH (09:00)
[2020-07-08] MEDS ORDERED: Aspirin Chewable 81 MG TAB PO SCH (09:00)
[2020-07-08] MEDS ORDERED: Regadenoson 0.4 MG/5 ML SYRINGE ONE (10:08)
[2020-07-08] MEDS: Docusate 100 MG CAP PO SCH ×2 (12:18→15:05)
[2020-07-08 14:05] LABS: SARS-CoV-2 PCR by NAA DETECTED (NotDetected)
[2020-07-08 16:55] VITALS: BP 117/59; TEMP 97.2
[2020-07-08] MEDS ORDERED: Mirtazapine 15 MG Soltab PO SCH (21:00)
[2020-07-08] MEDS ORDERED: TOPIRAMATE 50 MG PO SCH (21:00)
[2020-07-08] MEDS ORDERED: Atorvastatin Calcium 10 MG TAB PO SCH (21:00)
[2020-07-09] MEDS ORDERED: predniSONE 20 MG TAB PO SCH ×2 (08:00→09:00)
== END 2020-07-08 18:46 | disposition home or self-care (01) ==
LOC: 2SW 21:11
PROVIDERS: ADMIT Student in an Organized Health Care Education/Training Program; ATTEND Internal Medicine
DX: U07.1 COVID-19 (principal); J44.9 Chronic obstructive pulmonary disease, unspecified; K21.9 Gastro-esophageal reflux disease without esophagitis; E78.5 Hyperlipidemia, unspecified; E78.00 Pure hypercholesterolemia, unspecified; Z87.891 Personal history of nicotine dependence; Z79.52 Long term (current) use of systemic steroids; Z79.82 Long term (current) use of aspirin; Z79.899 Other long term (current) drug therapy; Z88.8 Allergy status to other drugs, medicaments and biological substances; Z99.81 Dependence on supplemental oxygen
CPT/HCPCS: 78452; 80048; 80061; 83735; 84439; 84443; 84484 ×2; 85025; 93017; 94640 ×2; 94760; 97139; A9500; U0003; U0005; 36415; 87635; 96372; G0378; J1650; J2785; J7512; J7626

== ENCOUNTER 2020-08-07 17:07 | Inpatient (IN) | payer MEDICARE ==
[2020-08-07 17:46] LABS: Hemoglobin 11.7 g/dL (12.0-16.0); Mean Corpuscular Hemoglobin 29.8 pg (27.0-31.0); Red Blood Cell (RBC) Count 3.91 mill/uL (4.20-5.40)
[2020-08-07 18:10] LABS: #Eosinphils 0.1 thou/uL (0.0-0.7); #Lymphocytes 1.4 thou/uL (1.20-3.40); #Monocytes 0.7 thou/uL (0.11-0.59); #Neutrophils 5.8 thou/uL (1.40-6.50); %Basophils 0.4 % (0.0-1.0); %Eosinophils 0.7 % (0.0-10.0); %Lymphocytes 17.7 % (21.0-51.0); %Monocytes 8.9 % (0.0-10.0); %Neutrophils 72.2 % (42.0-75.0); Mean Corpuscular HGB CONC 29.6 g/dL (32.0-36.0); Mean Platelet Volume 7.1 fL (7.4-10.4); Platelet Count 224 thou/uL (130-400); Platelet Morphology Comment Appears Adequate; RBC Distribution Width 13.9 % (11.5-14.5); RBC Morphology Normal
[2020-08-07 18:11] LABS: ALT (SGPT) 23 U/L (8-55); AST (SGOT) 26 U/L (5-34); Albumin 4.2 g/dL (3.4-4.8); Alkaline Phosphatase 69 U/L (40-110); Anion Gap 12 mmol/L (10-20); BUN (Urea Nitrogen) 20 mg/dL (9.8-20.1); Bilirubin, Total Less than 0.2 mg/dL (0.2-1.2); Calc. Creatinine Clearance 0 mL/min (70-130); Calcium 9.4 mg/dL (7.8-10.44); Carbon Dioxide 37 mmol/L (23-31); Chloride 97 mmol/L (98-107); Globulin 2.3 g/dL (2.4-3.5); Glucose 161 mg/dL (80-115); Potassium 3.9 mmol/L (3.5-5.1); Protein, Total 6.5 g/dL (5.8-8.1); Sodium 142 mmol/L (136-145)
[2020-08-07 20:53] VITALS: BMI 19.8
[2020-08-07] MEDS ORDERED: Ondansetron ODT 4 MG TAB PO PRN (21:36)
[2020-08-07] MEDS ORDERED: Acetaminophen 325 MG TAB PO PRN (21:36)
[2020-08-07] MEDS ORDERED: HYDROcodone/Acetaminophen 5/325 mg Tablet PO PRN (21:36)
[2020-08-07] MEDS ORDERED: Ondansetron PF 4 MG/2 ML Vial IVP PRN (21:36)
[2020-08-07] MEDS ORDERED: Bacteriostatic Water 30 ML VIAL FS PRN (21:45)
[2020-08-07] MEDS ORDERED: Albuterol Sulfate 2.5 mg/3 ml Neb ONE (21:53)
[2020-08-07] MEDS ORDERED: Azithromycin 500 MG in Sodium Chloride 0.9% 250 ML 250 ML IVPB SCH (22:00)
[2020-08-07] MEDS: Rizatriptan Benzoate 10 MG MLT TAB PO PRN (23:00)
[2020-08-07] MEDS: traMADol HCl 50 MG TAB PO PRN (23:14)
[2020-08-08 03:11] LABS: SARS-CoV-2 NAA Rapid Test Not Detected (NotDetected)
[2020-08-08 05:37] LABS: #Basophils 0.1 thou/uL (0.0-0.2); #Eosinphils 0.2 thou/uL (0.0-0.7); #Lymphocytes 2.2 thou/uL (1.20-3.40); #Monocytes 0.9 thou/uL (0.11-0.59); %Eosinophils 2.7 % (0.0-10.0); %Lymphocytes 29.4 % (21.0-51.0); %Monocytes 12.7 % (0.0-10.0); %Neutrophils 54.2 % (42.0-75.0); Hemoglobin 10.8 g/dL (12.0-16.0); Mean Corpuscular HGB CONC 30.2 g/dL (32.0-36.0); Mean Corpuscular Hemoglobin 30.8 pg (27.0-31.0); Mean Platelet Volume 7.1 fL (7.4-10.4); Platelet Count 185 thou/uL (130-400); RBC Distribution Width 13.8 % (11.5-14.5); Red Blood Cell (RBC) Count 3.51 mill/uL (4.20-5.40); White Blood Cell (WBC) Count 7.3 thou/uL (4.8-10.8)
[2020-08-08 05:56] LABS: BUN (Urea Nitrogen) 16 mg/dL (9.8-20.1); Calc. Creatinine Clearance 51 mL/min (70-130); Glucose 90 mg/dL (80-115)
[2020-08-08 06:05] LABS: Anion Gap 15 mmol/L (10-20); Carbon Dioxide 34 mmol/L (23-31); Chloride 100 mmol/L (98-107); Potassium 3.6 mmol/L (3.5-5.1); Sodium 145 mmol/L (136-145)
[2020-08-08] MEDS: Budesonide 0.5 MG/2 ML NEB NEB SCH (06:48)
[2020-08-08] MEDS: Montelukast Sodium 10 mg Tablet PO SCH (08:14)
[2020-08-08] MEDS ORDERED: methylPREDNISolone Sod Succ 40 MG VIAL IVP SCH (09:00)
[2020-08-08] MEDS ORDERED: Non-Formulary Item 1 EACH (Albuterol Sulfate [Albuterol Sulfate Neb] 0.63 MG/3 ML Vial.Ne INH SCH (09:00)
[2020-08-08] MEDS: methylPREDNISolone Sod Succ 40 MG VIAL IVP SCH ×2 (09:17→19:50)
[2020-08-08] MEDS: Albuterol Sulfate 1.25 MG/3 ML NEB NEB PRN ×2 (10:19→14:18)
[2020-08-08] MEDS ORDERED: Loratadine 10 MG TAB PO PRN (15:21)
[2020-08-08] MEDS ORDERED: Non-Formulary Item 1 EACH (Cholecalciferol (Vitamin D3) [Vitamin D] 1000 UNIT Capsule) PO SCH (15:30)
[2020-08-08] MEDS ORDERED: Lorazepam 1 MG TAB PO PRN (15:42)
[2020-08-08] MEDS ORDERED: Laxative Of Choice PO PRN (16:50)
[2020-08-08] MEDS: traMADol HCl 50 MG TAB PO PRN (17:27)
[2020-08-08] MEDS: Arformoterol 15 MCG/2 ML NEB NEB SCH (19:21)
[2020-08-08] MEDS: Mirtazapine 15 MG Soltab PO SCH (19:50)
[2020-08-08] MEDS: Atorvastatin Calcium 10 MG TAB PO SCH (19:50)
[2020-08-08] MEDS: Enoxaparin Sodium 30 MG/0.3 ML SYRINGE SC SCH (19:50)
[2020-08-08] MEDS ORDERED: TOPIRAMATE 50 MG PO SCH (21:00)
[2020-08-09] MEDS: Rizatriptan Benzoate 10 MG MLT TAB PO PRN (03:37)
[2020-08-09 05:55] LABS: #Lymphocytes 0.8 thou/uL (1.20-3.40); #Monocytes 0.4 thou/uL (0.11-0.59); #Neutrophils 8.8 thou/uL (1.40-6.50); %Basophils 0.2 % (0.0-1.0); %Eosinophils 0.1 % (0.0-10.0); %Lymphocytes 7.6 % (21.0-51.0); %Monocytes 4.1 % (0.0-10.0); %Neutrophils 87.9 % (42.0-75.0); Hemoglobin 12.3 g/dL (12.0-16.0); Mean Corpuscular Hemoglobin 29.6 pg (27.0-31.0); Mean Corpuscular Volume 98.7 fL (78.0-98.0); Mean Platelet Volume 7.5 fL (7.4-10.4); Platelet Count 185 thou/uL (130-400); RBC Distribution Width 13.9 % (11.5-14.5); Red Blood Cell (RBC) Count 4.17 mill/uL (4.20-5.40)
[2020-08-09 06:09] LABS: Anion Gap 12 mmol/L (10-20); BUN (Urea Nitrogen) 13 mg/dL (9.8-20.1); Calc. Creatinine Clearance 51 mL/min (70-130); Calcium 10.1 mg/dL (7.8-10.44); Carbon Dioxide 37 mmol/L (23-31); Chloride 96 mmol/L (98-107); Glucose 142 mg/dL (80-115); Potassium 4.1 mmol/L (3.5-5.1); Sodium 141 mmol/L (136-145)
[2020-08-09] MEDS: Arformoterol 15 MCG/2 ML NEB NEB SCH ×2 (06:58→19:42)
[2020-08-09] MEDS: Albuterol Sulfate 1.25 MG/3 ML NEB NEB PRN ×3 (07:00→19:44)
[2020-08-09] MEDS: Budesonide 0.5 MG/2 ML NEB NEB SCH (07:01)
[2020-08-09] MEDS: Potassium Chloride 20 MEQ TAB PO SCH (08:42)
[2020-08-09] MEDS: Aspirin Chewable 81 MG TAB PO SCH (08:42)
[2020-08-09] MEDS: Montelukast Sodium 10 mg Tablet PO SCH (08:42)
[2020-08-09] MEDS: methylPREDNISolone Sod Succ 40 MG VIAL IVP SCH ×2 (08:43→20:11)
[2020-08-09] MEDS ORDERED: Iopamidol 370 76% 100 ML VIAL ONE (10:00)
[2020-08-09] MEDS ORDERED: Senokot S 8.6-50 MG TAB PO PRN (13:44)
[2020-08-09] MEDS ORDERED: Simethicone Chewable 80 MG TAB PO PRN (13:45)
[2020-08-09] MEDS: Enoxaparin Sodium 30 MG/0.3 ML SYRINGE SC SCH (20:11)
[2020-08-09] MEDS: Mirtazapine 15 MG Soltab PO SCH (20:11)
[2020-08-09] MEDS: Atorvastatin Calcium 10 MG TAB PO SCH (20:11)
[2020-08-09] MEDS ORDERED: PARoxetine 20 MG TAB PO SCH (21:00)
[2020-08-09] MEDS: traMADol HCl 50 MG TAB PO PRN (22:20)
[2020-08-10] MEDS: Rizatriptan Benzoate 10 MG MLT TAB PO PRN (00:19)
[2020-08-10] MEDS: Arformoterol 15 MCG/2 ML NEB NEB SCH (07:58)
[2020-08-10] MEDS: Budesonide 0.5 MG/2 ML NEB NEB SCH (08:01)
[2020-08-10] MEDS: Montelukast Sodium 10 mg Tablet PO SCH (09:25)
[2020-08-10] MEDS: Potassium Chloride 20 MEQ TAB PO SCH (09:25)
[2020-08-10] MEDS: methylPREDNISolone Sod Succ 40 MG VIAL IVP SCH (09:25)
[2020-08-10] MEDS: Aspirin Chewable 81 MG TAB PO SCH (09:25)
[2020-08-10] MEDS: traMADol HCl 50 MG TAB PO PRN (09:41)
[2020-08-10 12:32] VITALS: BP 131/57; TEMP 98.9
== END 2020-08-10 13:58 | disposition home or self-care (01) | DRG 391 ==
LOC: ERS 17:07 → SURG A 19:30 → OBSVTOIN 19:30
PROVIDERS: ADMIT Student in an Organized Health Care Education/Training Program; ATTEND Internal Medicine
DX: K21.00 Gastro-esophageal reflux disease with esophagitis, without bleeding (principal); J96.20 Acute and chronic respiratory failure, unspecified whether with hypoxia or hypercapnia; J38.5 Laryngeal spasm; E78.00 Pure hypercholesterolemia, unspecified; J43.9 Emphysema, unspecified; F41.0 Panic disorder [episodic paroxysmal anxiety]; G89.29 Other chronic pain; Z20.822 Contact with and (suspected) exposure to COVID-19; Z99.81 Dependence on supplemental oxygen; Z86.16 Personal history of COVID-19; Z88.8 Allergy status to other drugs, medicaments and biological substances; Z79.82 Long term (current) use of aspirin; Z79.899 Other long term (current) drug therapy; Z98.1 Arthrodesis status; Z98.51 Tubal ligation status; Z98.890 Other specified postprocedural states; Z87.891 Personal history of nicotine dependence
CPT/HCPCS: 36415; 70491; 71045; 74220; 74230; 80048; 80053; 83880; 84484; 85025; 93005; 94640; 96374; 96375; G0378; J0456; J1650; J2920; J7050; J7620; J7626; Q0162; Q9967; U0002; U0005

== ENCOUNTER 2020-11-06 10:16 | Outpatient (CLI) | payer MEDICARE | END 2020-11-06 10:17 | disposition home or self-care (01) | LOC: BICMRI 10:16 | PROVIDERS: ATTEND Nurse Practitioner Family | DX: M47.22 Other spondylosis with radiculopathy, cervical region (principal); Z98.1 Arthrodesis status; Z98.890 Other specified postprocedural states | CPT/HCPCS: 72141 ==

== ENCOUNTER 2020-12-09 09:40 | Outpatient (CLI) | payer MEDICARE | END 2020-12-09 09:41 | disposition home or self-care (01) | LOC: NM 09:40 | PROVIDERS: ATTEND Anesthesiology Pain Medicine | DX: S22.050A Wedge compression fracture of T5-T6 vertebra, initial encounter for closed fracture (principal); S22.049A Unspecified fracture of fourth thoracic vertebra, initial encounter for closed fracture | CPT/HCPCS: 78306; A9503 ==

== ENCOUNTER 2020-12-19 13:06 | Outpatient (CLI) | payer MEDICARE | END 2020-12-19 13:07 | disposition home or self-care (01) | LOC: BICRAD 13:06 | PROVIDERS: ATTEND Internal Medicine Critical Care Medicine | DX: R06.00 Dyspnea, unspecified (principal); J44.9 Chronic obstructive pulmonary disease, unspecified; M43.8X4 Other specified deforming dorsopathies, thoracic region | CPT/HCPCS: 71046 ==

== ENCOUNTER 2021-01-22 08:51 | Outpatient (CLI) | payer MEDICARE | END 2021-01-22 08:52 | disposition home or self-care (01) | LOC: RAD 08:51 | PROVIDERS: ATTEND Internal Medicine Critical Care Medicine | DX: R06.00 Dyspnea, unspecified (principal); J98.4 Other disorders of lung | CPT/HCPCS: 71046 ==

== ENCOUNTER 2022-05-20 14:03 | Inpatient (IN) | payer OTHER ==
[2022-05-20 15:52] LABS: #Basophils 0.1 thou/uL (0.0-0.2); #Eosinphils 0.1 thou/uL (0.0-0.7); #Lymphocytes 1.7 thou/uL (1.20-3.40); #Monocytes 0.7 thou/uL (0.11-0.59); #Neutrophils 8.5 thou/uL (1.40-6.50); %Basophils 0.5 % (0.0-1.0); %Eosinophils 0.9 % (0.0-10.0); %Lymphocytes 14.9 % (21.0-51.0); %Monocytes 6.6 % (0.0-10.0); %Neutrophils 77.1 % (42.0-75.0); Hemoglobin 12.3 g/dL (12.0-16.0); Mean Corpuscular HGB CONC 30.4 g/dL (32.0-36.0); Mean Corpuscular Hemoglobin 30.1 pg (27.0-31.0); Mean Corpuscular Volume 98.8 fl (78.0-98.0); Mean Platelet Volume 7.2 fL (7.4-10.4); Platelet Count 285 10x3/uL (130-400); Red Blood Cell (RBC) Count 4.08 mill/uL (4.20-5.40); White Blood Cell (WBC) Count 11.1 10x3/uL (4.8-10.8)
[2022-05-20 16:15] LABS: ALT (SGPT) 29 U/L (8-55); AST (SGOT) 32 U/L (5-34); Albumin 4.3 g/dL (3.4-4.8); Alkaline Phosphatase 54 U/L (40-110); Anion Gap 16 mmol/L (10-20); BUN (Urea Nitrogen) 13 mg/dL (9.8-20.1); Bilirubin, Total 0.2 mg/dL (0.2-1.2); Calc. Creatinine Clearance 0 mL/min (70-130); Calcium 9.9 mg/dL (7.8-10.44); Carbon Dioxide 25 mmol/L (23-31); Chloride 98 mmol/L (98-107); Estimated GFR 60; Globulin 2.6 g/dL (2.4-3.5); Glucose 104 mg/dL (83-110); Protein, Total 6.9 g/dL (5.8-8.1); Sodium 135 mmol/L (136-145)
[2022-05-20 16:58] LABS: Bilirubin Negative (Negative); Blood, Urine Negative (Negative); Clarity Clear (Clear); Glucose, Urine (Dipstick) Normal (Negative); Ketone, Urine Negative (Negative); Leukocyte Negative Leu/uL (Negative); Nitrite Negative (Negative); Protein, Urine (Dipstick) Negative (Neg-Trace); Specific Gravity, Urine 1.012 (1.002-1.036); Urobilinogen Normal mg/dL (Less than 2); pH, Urine 6.5 (5.0-9.0)
[2022-05-20] MEDS ORDERED: Iopamidol-370 76% 500 ML 1 ML ONE (17:26)
[2022-05-20] MEDS ORDERED: Ondansetron PF 4 MG/2 ML Vial IVP PRN ×2 (19:00)
[2022-05-20] MEDS ORDERED: Acetaminophen 325 MG TAB PO PRN (19:00)
[2022-05-20] MEDS ORDERED: Senokot S 8.6-50 MG TAB PO PRN (19:00)
[2022-05-20] MEDS ORDERED: Ondansetron ODT 4 MG TAB PO PRN (19:00)
[2022-05-20] MEDS ORDERED: Ondansetron ODT 4 MG TAB SL PRN (19:00)
[2022-05-20] MEDS ORDERED: Ipratropium/Albuterol 3 ML NEB NEB PRN (19:34)
[2022-05-20 20:15] LABS: Troponin I Less than 0.010 ng/mL (< 0.028)
[2022-05-20] MEDS ORDERED: Senokot 8.6 MG TAB PO PRN (20:44)
[2022-05-20] MEDS ORDERED: SUMAtriptan Succinate 50 MG TAB PO PRN (20:55)
[2022-05-20] MEDS ORDERED: Polyethylene Glycol 3350 17 GM Packet PO PRN (21:00)
[2022-05-20] MEDS ORDERED: Topiramate 100 MG TAB PO SCH (21:00)
[2022-05-20] MEDS: Topiramate 100 MG TAB PO SCH (21:08)
[2022-05-20] MEDS: traMADol HCl 50 MG TAB PO PRN (21:11)
[2022-05-20] MEDS: Atorvastatin Calcium 10 MG TAB PO SCH (21:12)
[2022-05-20] MEDS: Calcium Carbonate 500 MG ChewTAB PO PRN (21:20)
[2022-05-20 21:42] VITALS: BMI 14.3
[2022-05-20] MEDS: Budesonide 0.5 MG/2 ML NEB NEB SCH (22:43)
[2022-05-20 23:10] LABS: Troponin I Less than 0.010 ng/mL (< 0.028)
[2022-05-21 04:58] LABS: #Basophils 0.1 thou/uL (0.0-0.2); #Eosinphils 0.2 thou/uL (0.0-0.7); #Lymphocytes 2.4 thou/uL (1.20-3.40); #Monocytes 1.1 thou/uL (0.11-0.59); #Neutrophils 5.4 thou/uL (1.40-6.50); %Basophils 0.9 % (0.0-1.0); %Eosinophils 2.4 % (0.0-10.0); %Lymphocytes 25.7 % (21.0-51.0); %Monocytes 12.3 % (0.0-10.0); %Neutrophils 58.7 % (42.0-75.0); Hemoglobin 11.1 g/dL (12.0-16.0); Mean Corpuscular HGB CONC 31.3 g/dL (32.0-36.0); Mean Corpuscular Hemoglobin 30.5 pg (27.0-31.0); Mean Corpuscular Volume 97.6 fl (78.0-98.0); Mean Platelet Volume 6.9 fL (7.4-10.4); Platelet Count 229 10x3/uL (130-400); RBC Distribution Width 12.9 % (11.5-14.5); Red Blood Cell (RBC) Count 3.64 mill/uL (4.20-5.40); White Blood Cell (WBC) Count 9.3 10x3/uL (4.8-10.8)
[2022-05-21 05:18] LABS: Anion Gap 12 mmol/L (10-20); BUN (Urea Nitrogen) 13 mg/dL (9.8-20.1); Calc. Creatinine Clearance 31 mL/min (70-130); Carbon Dioxide 34 mmol/L (23-31); Chloride 96 mmol/L (98-107); Estimated GFR 70; Glucose 80 mg/dL (83-110); Potassium 3.6 mmol/L (3.5-5.1); Sodium 138 mmol/L (136-145)
[2022-05-21] MEDS: Budesonide 0.5 MG/2 ML NEB NEB SCH ×2 (06:32→19:47)
[2022-05-21] MEDS: Arformoterol 15 MCG/2 ML NEB NEB SCH (06:39)
[2022-05-21] MEDS: Aspirin Chewable 81 MG TAB PO SCH (08:51)
[2022-05-21] MEDS: Loratadine 10 MG TAB PO SCH (08:51)
[2022-05-21] MEDS: Topiramate 100 MG TAB PO SCH ×2 (08:53→20:44)
[2022-05-21] MEDS: Montelukast Sodium 10 mg Tablet PO SCH (08:53)
[2022-05-21] MEDS ORDERED: FLU VACC QS2022-23(65YR UP)/PF 240 MCG/0.7 ML SYRINGE IM ONE (09:00)
[2022-05-21] MEDS ORDERED: Atorvastatin Calcium 10 MG TAB PO SCH (09:00)
[2022-05-21] MEDS: traMADol HCl 50 MG TAB PO PRN (16:24)
[2022-05-21] MEDS: Calcium Carbonate 500 MG ChewTAB PO PRN (16:24)
[2022-05-21] MEDS: Atorvastatin Calcium 10 MG TAB PO SCH (20:44)
[2022-05-22 05:02] LABS: #Eosinphils 0.2 thou/uL (0.0-0.7); #Lymphocytes 1.1 thou/uL (1.20-3.40); #Monocytes 0.9 thou/uL (0.11-0.59); %Basophils 0.6 % (0.0-1.0); %Eosinophils 3.4 % (0.0-10.0); %Lymphocytes 14.8 % (21.0-51.0); %Monocytes 11.9 % (0.0-10.0); %Neutrophils 69.2 % (42.0-75.0); Hemoglobin 11.6 g/dL (12.0-16.0); Mean Corpuscular HGB CONC 31.4 g/dL (32.0-36.0); Mean Corpuscular Hemoglobin 30.5 pg (27.0-31.0); Mean Corpuscular Volume 96.9 fl (78.0-98.0); Platelet Count 190 10x3/uL (130-400); RBC Distribution Width 12.8 % (11.5-14.5); Red Blood Cell (RBC) Count 3.81 mill/uL (4.20-5.40); White Blood Cell (WBC) Count 7.2 10x3/uL (4.8-10.8)
[2022-05-22 05:21] LABS: Anion Gap 14 mmol/L (10-20); BUN (Urea Nitrogen) 18 mg/dL (9.8-20.1); Calc. Creatinine Clearance 35 mL/min (70-130); Calcium 9.5 mg/dL (7.8-10.44); Carbon Dioxide 34 mmol/L (23-31); Chloride 96 mmol/L (98-107); Estimated GFR 81; Glucose 85 mg/dL (83-110); Potassium 3.6 mmol/L (3.5-5.1); Sodium 140 mmol/L (136-145)
[2022-05-22] MEDS: Arformoterol 15 MCG/2 ML NEB NEB SCH (07:28)
[2022-05-22] MEDS: Budesonide 0.5 MG/2 ML NEB NEB SCH ×2 (07:31→20:38)
[2022-05-22] MEDS ORDERED: Non-Formulary Item 1 EACH (Prednisone [Prednisone] 10 MG Tablet) PO SCH (08:15)
[2022-05-22] MEDS: traMADol HCl 50 MG TAB PO PRN ×2 (09:20→18:13)
[2022-05-22] MEDS: Lorazepam 0.5 MG TAB PO PRN (09:20)
[2022-05-22] MEDS: Loratadine 10 MG TAB PO SCH (09:21)
[2022-05-22] MEDS: Topiramate 100 MG TAB PO SCH ×2 (09:21→20:36)
[2022-05-22] MEDS: predniSONE 20 MG TAB PO SCH (09:21)
[2022-05-22] MEDS: Aspirin Chewable 81 MG TAB PO SCH (09:21)
[2022-05-22] MEDS: Montelukast Sodium 10 mg Tablet PO SCH (09:21)
[2022-05-22] MEDS ORDERED: Sodium Chloride 0.9% 500 ML IV SCH (12:00)
[2022-05-22] MEDS: Atorvastatin Calcium 10 MG TAB PO SCH (20:36)
[2022-05-22] MEDS ORDERED: Apixaban 5 MG TAB PO SCH (21:00)
[2022-05-22] MEDS: Bisacodyl 5 MG TAB PO PRN (21:57)
[2022-05-23 05:22] LABS: #Basophils 0.1 thou/uL (0.0-0.2); #Eosinphils 0.1 thou/uL (0.0-0.7); #Lymphocytes 1.2 thou/uL (1.20-3.40); #Monocytes 0.9 thou/uL (0.11-0.59); #Neutrophils 4.2 thou/uL (1.40-6.50); %Basophils 0.9 % (0.0-1.0); %Eosinophils 2.2 % (0.0-10.0); %Lymphocytes 18.3 % (21.0-51.0); %Monocytes 13.3 % (0.0-10.0); %Neutrophils 65.3 % (42.0-75.0); Hemoglobin 10.3 g/dL (12.0-16.0); Mean Corpuscular HGB CONC 30.9 g/dL (32.0-36.0); Mean Corpuscular Hemoglobin 30.2 pg (27.0-31.0); Mean Corpuscular Volume 97.6 fl (78.0-98.0); Mean Platelet Volume 6.8 fL (7.4-10.4); Platelet Count 205 10x3/uL (130-400); RBC Distribution Width 12.6 % (11.5-14.5); Red Blood Cell (RBC) Count 3.42 mill/uL (4.20-5.40); White Blood Cell (WBC) Count 6.4 10x3/uL (4.8-10.8)
[2022-05-23 05:46] LABS: Anion Gap 10 mmol/L (10-20); BUN (Urea Nitrogen) 14 mg/dL (9.8-20.1); Calc. Creatinine Clearance 41 mL/min (70-130); Calcium 8.8 mg/dL (7.8-10.44); Carbon Dioxide 31 mmol/L (23-31); Chloride 100 mmol/L (98-107); Estimated GFR 92; Glucose 87 mg/dL (83-110); Potassium 3.4 mmol/L (3.5-5.1); Sodium 138 mmol/L (136-145)
[2022-05-23] MEDS: Arformoterol 15 MCG/2 ML NEB NEB SCH (07:35)
[2022-05-23] MEDS: Budesonide 0.5 MG/2 ML NEB NEB SCH ×2 (07:45→21:11)
[2022-05-23] MEDS: predniSONE 5 MG TAB PO SCH (07:58)
[2022-05-23] MEDS: Aspirin Chewable 81 MG TAB PO SCH (07:58)
[2022-05-23] MEDS: Montelukast Sodium 10 mg Tablet PO SCH (07:59)
[2022-05-23] MEDS: Topiramate 100 MG TAB PO SCH ×2 (07:59→20:17)
[2022-05-23] MEDS: Loratadine 10 MG TAB PO SCH (07:59)
[2022-05-23] MEDS: Lorazepam 0.5 MG TAB PO PRN ×2 (10:39→22:42)
[2022-05-23] MEDS ORDERED: Nitroglycerin 0.4 MG TAB (25 Tab Bottle) SL PRN (10:40)
[2022-05-23] MEDS ORDERED: Ipratropium/Albuterol 3 ML NEB NEB PRN (10:42)
[2022-05-23] MEDS: traMADol HCl 50 MG TAB PO PRN (20:16)
[2022-05-23] MEDS: Bisacodyl 5 MG TAB PO PRN (20:17)
[2022-05-23] MEDS: Calcium Carbonate 500 MG ChewTAB PO PRN (20:17)
[2022-05-23] MEDS: Atorvastatin Calcium 10 MG TAB PO SCH (20:17)
[2022-05-24 06:00] LABS: #Eosinphils 0.1 thou/uL (0.0-0.7); #Lymphocytes 1.8 thou/uL (1.20-3.40); #Monocytes 0.8 thou/uL (0.11-0.59); #Neutrophils 4.3 thou/uL (1.40-6.50); %Basophils 0.7 % (0.0-1.0); %Eosinophils 1.8 % (0.0-10.0); %Lymphocytes 24.9 % (21.0-51.0); %Monocytes 11.6 % (0.0-10.0); Hemoglobin 9.9 g/dL (12.0-16.0); Mean Corpuscular HGB CONC 31.9 g/dL (32.0-36.0); Mean Corpuscular Volume 97.2 fl (78.0-98.0); Platelet Count 188 10x3/uL (130-400); RBC Distribution Width 12.6 % (11.5-14.5)
[2022-05-24 06:17] LABS: Anion Gap 11 mmol/L (10-20); BUN (Urea Nitrogen) 10 mg/dL (9.8-20.1); Calc. Creatinine Clearance 38 mL/min (70-130); Calcium 8.7 mg/dL (7.8-10.44); Carbon Dioxide 30 mmol/L (23-31); Chloride 100 mmol/L (98-107); Estimated GFR 87; Glucose 84 mg/dL (83-110); Potassium 3.1 mmol/L (3.5-5.1); Sodium 138 mmol/L (136-145)
[2022-05-24] MEDS: Arformoterol 15 MCG/2 ML NEB NEB SCH (07:30)
[2022-05-24] MEDS: Budesonide 0.5 MG/2 ML NEB NEB SCH ×2 (07:35→19:58)
[2022-05-24] MEDS: predniSONE 20 MG TAB PO SCH (08:12)
[2022-05-24] MEDS: Topiramate 100 MG TAB PO SCH ×2 (08:12→19:57)
[2022-05-24] MEDS: Loratadine 10 MG TAB PO SCH (08:12)
[2022-05-24] MEDS: Montelukast Sodium 10 mg Tablet PO SCH (08:12)
[2022-05-24] MEDS: Aspirin Chewable 81 MG TAB PO SCH (08:12)
[2022-05-24] MEDS: Potassium Chloride 20 MEQ TAB PO SCH ×2 (08:12→14:12)
[2022-05-24] MEDS: traMADol HCl 50 MG TAB PO PRN (08:14)
[2022-05-24] MEDS: Lorazepam 0.5 MG TAB PO PRN (12:04)
[2022-05-24] MEDS: Bisacodyl 5 MG TAB PO PRN (19:57)
[2022-05-24] MEDS: Calcium Carbonate 500 MG ChewTAB PO PRN (19:58)
[2022-05-24] MEDS: Atorvastatin Calcium 10 MG TAB PO SCH (19:58)
[2022-05-24] MEDS: SUMAtriptan Succinate 50 MG TAB PO PRN (22:50)
[2022-05-25 05:49] LABS: #Eosinphils 0.2 thou/uL (0.0-0.7); #Monocytes 1.1 thou/uL (0.11-0.59); #Neutrophils 4.8 thou/uL (1.40-6.50); %Basophils 0.6 % (0.0-1.0); %Eosinophils 2.5 % (0.0-10.0); %Lymphocytes 24.2 % (21.0-51.0); %Monocytes 13.6 % (0.0-10.0); Hemoglobin 10.6 g/dL (12.0-16.0); Mean Corpuscular HGB CONC 30.3 g/dL (32.0-36.0); Mean Corpuscular Hemoglobin 29.8 pg (27.0-31.0); Mean Corpuscular Volume 98.4 fl (78.0-98.0); Mean Platelet Volume 7.1 fL (7.4-10.4); Platelet Count 200 10x3/uL (130-400); RBC Distribution Width 12.7 % (11.5-14.5); Red Blood Cell (RBC) Count 3.55 mill/uL (4.20-5.40); White Blood Cell (WBC) Count 8.2 10x3/uL (4.8-10.8)
[2022-05-25 06:09] LABS: Anion Gap 11 mmol/L (10-20); BUN (Urea Nitrogen) 8 mg/dL (9.8-20.1); Calc. Creatinine Clearance 37 mL/min (70-130); Calcium 9.9 mg/dL (7.8-10.44); Carbon Dioxide 31 mmol/L (23-31); Chloride 103 mmol/L (98-107); Estimated GFR 86; Glucose 81 mg/dL (83-110); Potassium 3.7 mmol/L (3.5-5.1); Sodium 141 mmol/L (136-145)
[2022-05-25] MEDS: Montelukast Sodium 10 mg Tablet PO SCH (08:17)
[2022-05-25] MEDS: Loratadine 10 MG TAB PO SCH (08:17)
[2022-05-25] MEDS: predniSONE 5 MG TAB PO SCH (08:17)
[2022-05-25] MEDS: traMADol HCl 50 MG TAB PO PRN (08:27)
[2022-05-25] MEDS: Topiramate 100 MG TAB PO SCH ×2 (08:27→20:42)
[2022-05-25] MEDS: Arformoterol 15 MCG/2 ML NEB NEB SCH (08:35)
[2022-05-25] MEDS: Budesonide 0.5 MG/2 ML NEB NEB SCH ×3 (08:53→18:57)
[2022-05-25] MEDS: Lorazepam 0.5 MG TAB PO PRN (12:35)
[2022-05-25] MEDS: Aspirin Chewable 81 MG TAB PO SCH (12:36)
[2022-05-25] MEDS: Calcium Carbonate 500 MG ChewTAB PO PRN (12:39)
[2022-05-25] MEDS: SUMAtriptan Succinate 50 MG TAB PO PRN (18:09)
[2022-05-25] MEDS ORDERED: Gabapentin 100 MG CAP PO SCH (19:00)
[2022-05-25] MEDS: Atorvastatin Calcium 10 MG TAB PO SCH (20:42)
[2022-05-26] MEDS: Budesonide 0.5 MG/2 ML NEB NEB SCH (06:10)
[2022-05-26] MEDS: Arformoterol 15 MCG/2 ML NEB NEB SCH (06:20)
[2022-05-26] MEDS: Loratadine 10 MG TAB PO SCH (08:50)
[2022-05-26] MEDS: Topiramate 100 MG TAB PO SCH (08:50)
[2022-05-26] MEDS: predniSONE 20 MG TAB PO SCH (08:50)
[2022-05-26] MEDS: Aspirin Chewable 81 MG TAB PO SCH (08:50)
[2022-05-26] MEDS: Montelukast Sodium 10 mg Tablet PO SCH (08:50)
[2022-05-26 09:07] VITALS: BP 118/56; TEMP 97.4
[2022-05-26] MEDS: traMADol HCl 50 MG TAB PO PRN (09:14)
[2022-05-26] MEDS: Lorazepam 0.5 MG TAB PO PRN (14:05)
== END 2022-05-26 16:40 | disposition home or self-care (01) | DRG 309 ==
LOC: ERS 14:03 → 2SW 18:25 → OBSVTOIN 05-22 13:43
PROVIDERS: ADMIT Internal Medicine; ATTEND Internal Medicine
DX: I49.5 Sick sinus syndrome (principal); J44.1 Chronic obstructive pulmonary disease with (acute) exacerbation; J96.11 Chronic respiratory failure with hypoxia; Z20.822 Contact with and (suspected) exposure to COVID-19; Z23 Encounter for immunization; G89.29 Other chronic pain; I48.0 Paroxysmal atrial fibrillation; M54.9 Dorsalgia, unspecified; G43.909 Migraine, unspecified, not intractable, without status migrainosus; E78.5 Hyperlipidemia, unspecified; I08.3 Combined rheumatic disorders of mitral, aortic and tricuspid valves; Z99.81 Dependence on supplemental oxygen; Z88.8 Allergy status to other drugs, medicaments and biological substances; Z79.899 Other long term (current) drug therapy; Z79.82 Long term (current) use of aspirin; Z79.51 Long term (current) use of inhaled steroids; Z98.51 Tubal ligation status; Z87.891 Personal history of nicotine dependence
CPT/HCPCS: 36415; 71045; 71275; 74174; 80048; 80053; 81003; 83735; 84443; 84484; 85025; 85379; 90471; 90662; 93005; 93010; 93306; 94640; G0008; G0378; J7050; J7512; J7611; J7626; Q9967; U0003; U0005

== ENCOUNTER 2022-06-29 12:18 | Outpatient (CLI) | payer OTHER | END 2022-06-29 12:19 | disposition home or self-care (01) | LOC: RAD 12:18 | PROVIDERS: ATTEND Internal Medicine Critical Care Medicine | DX: R06.00 Dyspnea, unspecified (principal) | CPT/HCPCS: 71046 ==